=== PATIENT | male | born 1975 | race Two or more races ===

== ENCOUNTER 2022-03-11 19:09 | Emergency (ER) | payer MEDICAID, SELFPAY ==
--- NOTE | ~2022-03-11 | CT_ITS ---
EXAMINATION: CT ABDOMEN AND PELVIS WITH CONTRAST CLINICAL INFORMATION: Abdominal pain, nausea/vomiting COMPARISON: None TECHNIQUE: Multidetector volumetric images were obtained from the superior aspect of the liver through the pubic symphysis following administration 85 mL of Omnipaque 350 intravenous contrast. Sagittal and coronal reformatted images were obtained on the technologist's workstation. Oral contrast: No This CT examination was performed using dose optimization techniques as appropriate, variously including the following: *Automated exposure control *Adjustment of mA and/or kV according to patient size (this includes techniques or standardized protocols for targeted exams where dose is matched to indication/reason for exam; i.e. extremities or head) *Use of iterative reconstruction technique DLP: 667 mGy-cm FINDINGS: LUNG BASES: Mild dependent atelectasis. LIVER, GALLBLADDER, AND BILIARY TREE: The liver is normal in size, shape, and attenuation. A small focal region of hypoattenuation adjacent to the falciform ligament could be due to focal fatty infiltration or alterations in hepatic perfusion. No biliary ductal dilatation is present. The gallbladder is unremarkable with no evidence of radiopaque gallstones, gallbladder wall thickening, or obvious pericholecystic inflammatory changes. PANCREAS: Unremarkable. SPLEEN: Unremarkable. ADRENAL GLANDS: Unremarkable. KIDNEYS AND URETERS: The kidneys are normal in size, shape, and attenuation. No hydronephrosis, hydroureter, or calculi seen. No perinephric stranding. BLADDER: Unremarkable. GASTROINTESTINAL TRACT: No evidence of bowel obstruction. There is a mildly thick-walled appearance of scattered segments of the colon. The appendix is unremarkable. No free fluid or free air is seen. ABDOMINAL WALL: Fat-containing right inguinal hernia. LYMPH NODES: Normal. VASCULAR: Unremarkable. PELVIC VISCERA: Unremarkable. OSSEOUS STRUCTURES: Scattered endplate osteophytes are present in the spine. CT/CT abdomen pelvis w IV con IMPRESSION: Mildly thick-walled appearance of segments of colon, which could reflect mild colitis in the proper clinical setting. No evidence of bowel obstruction. Normal appendix.
[2022-03-11 19:20] VITALS: BP 159/96; PULSE 91; RESP 18; TEMP 36.9; O2SAT 95; BMI 32.0
--- NOTE | 2022-03-12 00:35 | ECG_ITS ---
Test Reason : ADB PAIN Blood Pressure : / mmHG Vent. Rate : 086 BPM Atrial Rate : 086 BPM P-R Int : 144 ms QRS Dur : 098 ms QT Int : 378 ms P-R-T Axes : 044 034 024 degrees QTc Int : 452 ms Normal sinus rhythm Intra-ventricular conduction delay Otherwise normal ECG No previous ECGs available Referred By: Celine Padilla Electronically Signed By:ROCKY CORDOVA MD
--- NOTE | 2022-03-12 00:35 | ED_ITS ---
HPI - Abdominal Pain General Chief Complaint: Nausea/Vomiting/Diarrhea Stated Complaint: abdominal pain, diarrhea, vomiting, food poison Time Seen by Provider: 03/12/22 00:31 Source: patient Mode of arrival: ambulatory Limitations: no limitations History of Present Illness HPI narrative: 46-year-old male presents with 5 days of diffuse abdominal pain, nausea, vomiting, and diarrhea. Patient is an insulin-dependent diabetic, does take metformin. Patient has been unable to eat or drink for the past 24 hours, and states that he was evaluated 5 days ago at [facility]. He states at that time the workup was negative, and he was discharged home with no supportive measures. Patient states that his diarrhea has continued, he does not report any blood in it, and does not report fevers or chills. He denies chest pain or pressure, palpitations, abdominal distention, inability to pass stools or flatu s, for weakness, and edema. MD elicited complaint: abdominal pain Pertinent past history: none Onset (ago): day(s) (5) Pain Consistency: constant Location: diffuse Severity: severe Pain scale (0-10): 9 Quality: cramping and aching Radiation: none Migration to: no migration Exacerbating factors: bowel movement, vomiting and movement Relieving factors: nothing Associated symptoms: nausea, vomiting and diarrhea Treatments prior to arrival: NSAIDs Related Data Previous Rx's Medication Instructions Recorded levofloxacin 750 mg tablet 750 mg PO Q24H 6 days #6 tabs 03/12/22 metronidazole 500 mg tablet 500 mg PO Q8H 7 days #21 tabs 03/12/22 ondansetron 4 mg disintegrating 4 mg PO Q8H PRN nausea and 03/12/22 tablet vomiting #14 tabs oxycodone 5 mg tablet 5 mg PO Q8H PRN pain #7 tabs 03/12/22 Allergies Allergy/AdvReac Type Severity Reaction Status Date / Time No Known Allergies Allergy Verified 03/11/22 19:20 Review of Systems Review of Systems Constitutional: No Weight loss, No Fever, No Chills, No Night Sweats, No Fatigue, No Malaise ENT/Mouth: No Hearing loss, No Ear Pain, No Nasal Congestion, No Sinus Pain, No Hoarseness, No sore throat, No Rhinorrhea, No Swallowing Difficulty Eyes: No Eye Pain, No Swelling, No Redness, No Foreign Body, No Discharge, No Vision Changes Cardiovascular: No Chest Pain, No SOB, No Dyspnea on Exertion, No Orthopnea, No Edema, No Palpitations Respiratory: No Cough, No Sputum, No Wheezing, No Dyspnea Gastrointestinal: Positive Nausea, Positive Vomiting, positive Diarrhea, positive abdominal Pain, No Hematochezia, No Melena Genitourinary: no irregular bleeding, No Dysuria, No Urinary Frequency, No Hematuria, No Urinary Incontinence, No Urgency, No Flank Pain, No Urinary Flow Changes, No Hesitancy Musculoskeletal: No joint pain, No Myalgias, No Joint Swelling Skin: No Skin Lesions, No rash Neuro: No Weakness, No Numbness, No Paresthesias, No Loss of Consciousness, No Dizziness, No Headache Psych: No Anxiety/Panic, No Depression, No SI/HI/AH/VH, No Social Issues Heme/Lymph: No Bruising, No Bleeding,No Lymphadenopathy Endocrine: No Polyuria, No Polydipsia, No Temperature Intolerance Yes all other systems are reviewed and are negative [facility] Past Medical History Attestation statement: The following information was validated with the patient. Source: old records reviewed Social History Social History Advance Directives: No Advance Directives Information Provided: No Physical Exam ED Vital Signs: Vital Signs - 24 hr 03/11/22 19:20 03/12/22 00:37 03/12/22 01:10 Temperature 98.4 F 99.2 F Pulse Rate 91 86 Respiratory Rate 18 16 16 Blood Pressure 159/96 H 174/98 H Pulse Oximetry 95 98 Oxygen Delivery Method Room Air Room Air 03/12/22 01:17 Temperature 99.1 F Pulse Rate 85 Respiratory Rate 20 Blood Pressure 179/89 H Pulse Oximetry 100 Oxygen Delivery Method Room Air BMI result Body Mass Index 32.0 Appearance: Alert. Oriented X3. Moderate distress. Eyes: Pupils equal, round and reactive to light. No scleral icterus. ENT: Pharynx normal. Dry mucous membranes. Neck: Normal inspection. Neck supple. CVS: Normal heart rate and rhythm. Pulses normal. Respiratory: No respiratory distress. Breath sounds normal. Abdomen: Soft and diffusely tender. No rigidity or rebound. Skin: Skin warm and dry. Normal skin color. Normal skin turgor. Extremities: No lower extremity edema. Gait well-balanced well coordinated. Neuro: No motor deficit. No sensory deficit. Cranial nerves 2-12 intact. Course Course Course Narrative: 46-year-old male presents for 5 days of diffuse abdominal pain with nausea, vomiting, and diarrhea. Was evaluated at [facility] where his lab values were normal, no imaging was completed at that time. Patient stated that his symptoms have not improved, and he has been unable to eat for approximately 24 hours. He is an insulin-dependent diabetic, does take metformin. He does report using alcohol prior to the onset of abdominal pain nausea and vomiting. Patient appears to be in moderate distress, has a diffusely tender abdomen without rigidity or rebound. Afebrile, alert oriented x4, no chest pain or palpitations noted. Plan of care is for CT scan abdomen and pelvis with contrast, labs, urinalysis, and COVID testing. Will order antiemetic, pain management, and fluids. 01:00 lab values are within normal limits, does have an elevated glucose of 285, sodium 131, corrected is 134. CT scan is pending. 01:20 EKG is normal sinus, low likelihood of ACS at this time. 01:50 CT scan shows colitis without perforation. White count is within normal limits, sodium 131 corrected 134. Plan of care is for patient to be discharged home, will order Levaquin, Flagyl, as patient does have diarrhea and Augmentin has higher risk of diarrhea. Will give oxycodone for pain management, Zofran for antiemetic. MDM - Abdominal Pain Differential Diagnosis Differential diagnosis: Likely abdominal pain, acute appendicitis, calculus of kidney, constipation, diverticulitis, gastroenteritis, gastritis, pancreatitis and small bowel obstruction Medical Records Attestation: I reviewed the patient's medical records. Lab Data Attestation: I reviewed the patient's lab results. Result diagrams: 03/12/22 00:49 03/12/22 00:49 Labs: Lab Results 03/12/22 03/12/22 03/12/22 Range/Units 00:48 00:48 00:49 WBC 6.2 (4.8-10.8) X10*3/uL RBC 4.25 L (4.60-5.80) X10*6/uL Hgb 13.1 L (14.0-18.0) g/dl Hct 36.7 L (42.0-52.0) % MCV 86.4 (80.0-98.0) fL MCH 30.8 (27.0-33.0) pg MCHC 35.7 (31.0-36.0) g/dl RDW 11.6 (11.0-16.0) % Plt Count 218 (160-400) X10*3/uL MPV 9.7 (9.4-12.4) fL Immature Gran % (Auto) 0.3 (0.0-0.4) % Neut % (Auto) 53.2 (45-73) % Lymph % (Auto) 17.9 L (20-40) % Becker % (Auto) 28.3 H (2-11) % Eos % (Auto) 0.0 (0-4) % Baso % (Auto) 0.3 (0-2) % Lymph # (Auto) 1.1 L (1.2-4.9) X10*3/uL Becker # (Auto) 1.8 H (0.1-1.2) X10*3/uL Eos # (Auto) 0.0 (0.0-0.4) X10*3/uL Baso # (Auto) 0.0 (0.0-0.2) X10*3/uL Abs Immat Gran (auto) 0.02 (0.00-0.03) X10*3/uL Absolute Neuts (auto) 3.3 (2.0-8.3) x10*3/uL Absolute Nucleated RBC 0.000 (0.0-0.012) X10*3/uL Nucleated RBC % (auto) 0.0 (0.0-0.2) /100WBC Smear Tech's Comments VERIFIED PT 10.7 (10.0-13.1) SEC INR 0.9 (0.9-1.1) APTT 26.9 (26.0-36.4) SEC Sodium (135-145) mmol/L Potassium (3.3-5.1) mmol/L Chloride (96-108) mmol/L Carbon Dioxide (22-29) mmol/L Anion Gap (12-20) BUN (9-16) mg/dL Creatinine (0.5-1.4) mg/dL Estim Creat Clear Calc Estimated GFR Random Glucose (60-115) mg/dL Lactic Acid 0.9 (0.5-2.0) mmol/L Calcium (8.4-10.2) mg/dL Total Bilirubin (0.0-1.0) mg/dL Direct Bilirubin (0.0-0.5) mg/dL AST (5-37) U/L ALT (0-40) U/L Alkaline Phosphatase (39-117) U/L Total Protein (6.5-8.0) g/dL Albumin (3.5-5.0) g/dL Lipase (8-78) U/L 03/12/22 Range/Units 00:49 WBC (4.8-10.8) X10*3/uL RBC (4.60-5.80) X10*6/uL Hgb (14.0-18.0) g/dl Hct (42.0-52.0) % MCV (80.0-98.0) fL MCH (27.0-33.0) pg MCHC (31.0-36.0) g/dl RDW (11.0-16.0) % Plt Count (160-400) X10*3/uL MPV (9.4-12.4) fL Immature Gran % (Auto) (0.0-0.4) % Neut % (Auto) (45-73) % Lymph % (Auto) (20-40) % Becker % (Auto) (2-11) % Eos % (Auto) (0-4) % Baso % (Auto) (0-2) % Lymph # (Auto) (1.2-4.9) X10*3/uL Becker # (Auto) (0.1-1.2) X10*3/uL Eos # (Auto) (0.0-0.4) X10*3/uL Baso # (Auto) (0.0-0.2) X10*3/uL Abs Immat Gran (auto) (0.00-0.03) X10*3/uL Absolute Neuts (auto) (2.0-8.3) x10*3/uL Absolute Nucleated RBC (0.0-0.012) X10*3/uL Nucleated RBC % (auto) (0.0-0.2) /100WBC Smear Tech's Comments PT (10.0-13.1) SEC INR (0.9-1.1) APTT (26.0-36.4) SEC Sodium 131 L (135-145) mmol/L Potassium 3.7 (3.3-5.1) mmol/L Chloride 94 L (96-108) mmol/L Carbon Dioxide 21 L (22-29) mmol/L Anion Gap 20 (12-20) BUN 15 (9-16) mg/dL Creatinine 0.96 (0.5-1.4) mg/dL Estim Creat Clear Calc 99.8 Estimated GFR > 60 Random Glucose 285 H (60-115) mg/dL Lactic Acid (0.5-2.0) mmol/L Calcium 8.3 L (8.4-10.2) mg/dL Total Bilirubin 0.5 (0.0-1.0) mg/dL Direct Bilirubin 0.2 (0.0-0.5) mg/dL AST 17 (5-37) U/L ALT 11 (0-40) U/L Alkaline Phosphatase 53 (39-117) U/L Total Protein 6.1 L (6.5-8.0) g/dL Albumin 3.5 (3.5-5.0) g/dL Lipase 40 (8-78) U/L Imaging Data CT scan - abdomen: Attestation: I personally reviewed and interpreted this imaging study as follows: Radiologist's impression: EXAMINATION: CT ABDOMEN AND PELVIS WITH CONTRAST? CLINICAL INFORMATION: Abdominal pain, nausea/vomiting? COMPARISON: None? TECHNIQUE: Multidetector volumetric images were obtained from the superior aspect of the liver through the pubic symphysis following administration 85 mL of Omnipaque 350 intravenous contrast. Sagittal and coronal reformatted images were obtained on the technologist's workstation.? Oral contrast: No This CT examination was performed using dose optimization techniques as appropriate, variously including the following: *Automated exposure control *Adjustment of mA and/or kV according to patient size (this includes techniques or standardized protocols for targeted exams where dose is matched to indication/reason for exam; i.e. extremities or head) *Use of iterative reconstruction technique DLP: 667 mGy-cm FINDINGS: LUNG BASES: Mild dependent atelectasis.? LIVER, GALLBLADDER, AND BILIARY TREE: The liver is normal in size, shape, and attenuation. A small focal region of hypoattenuation adjacent to the falciform ligament could be due to focal fatty infiltration or alterations in hepatic perfusion. No biliary ductal dilatation is present. The gallbladder is unremarkable with no evidence of radiopaque gallstones, gallbladder wall thickening, or obvious pericholecystic inflammatory changes.? PANCREAS: Unremarkable.? SPLEEN: Unremarkable.? ADRENAL GLANDS: Unremarkable.? KIDNEYS AND URETERS: The kidneys are normal in size, shape, and attenuation. No hydronephrosis, hydroureter, or calculi seen. No perinephric stranding. ? BLADDER: Unremarkable.? GASTROINTESTINAL TRACT: No evidence of bowel obstruction. There is a mildly thick-walled appearance of scattered segments of the colon. The appendix is unremarkable. No free fluid or free air is seen. ABDOMINAL WALL: Fat-containing right inguinal hernia.? LYMPH NODES: Normal. VASCULAR: Unremarkable. PELVIC VISCERA: Unremarkable.? OSSEOUS STRUCTURES: Scattered endplate osteophytes are present in the spine.? CT/CT abdomen pelvis w IV con IMPRESSION: Mildly thick-walled appearance of segments of colon, which could reflect mild colitis in the proper clinical setting. No evidence of bowel obstruction. Normal appendix.? ? ECG Data Attestation: I personally reviewed and interpreted this ECG as follows: ECG interpretation date: 03/12/22 ECG interpretation time: 01:13 Prior ECG tracings: not available for review Interpretation: Vent. rate 86 BPM MA interval 144 ms QRS duration 98 ms QT/QTc 378/452 ms P-R-T axes 44 34 24 Normal sinus rhythm Normal ECG No previous ECGs available Discharge Plan Discharge Clinical Impression: Colitis Patient Disposition: Home, Self-Care Instructions: Acute Nausea and Vomiting (ED), Colitis (ED) Additional Instructions: You were evaluated for abdominal pain, nausea, vomiting and diarrhea. CT scan of abdomen pelvis indicates mild colitis. Please take Levaquin 750 mg daily for the next 7 days. Take Flagyl 500 mg 3 times daily for the next 7 days. Do not drink alcohol with this medication. If you drink alcohol while taking this medication you will have severe side effects. I prescribed oxycodone for pain management. This medication is a narcotic and has high risk for addiction and abuse. Do not drive or operate machinery while taking this medication. This medication can cause drowsiness, increased risk for falls, delayed reaction time, and cause constipation. Drink plenty of flui ds, consider taking MiraLax and or Colace to help soften stools while on this medication. I prescribed Zofran for nausea. This medication is also under the tongue. Follow directions for this medication, take this medication every 8 hours as needed. Do not take more than prescribed. If symptoms worsen, return to the emergency department immediately. Thank you for choosing this emergency department for evaluation. Please follow-up with primary care physician as needed. Return to the emergency department for any new, concerning, or worsening symptoms. Prescriptions: New levofloxacin 750 mg tablet 750 mg PO Q24H 6 Days Qty: 6 0RF Rx Instructions: Start this medication on 03/13/2022, 1st dose given in the emergency department at 02:00 03/12/2022 metronidazole 500 mg tablet 500 mg PO Q8H 7 Days Qty: 21 0RF ondansetron 4 mg tablet,disintegrating 4 mg PO Q8H PRN (Reason: nausea and vomiting) Qty: 14 0RF oxycodone 5 mg tablet 5 mg PO Q8H PRN (Reason: pain) Qty: 7 0RF Rx Instructions: Partial Fill upon patient request. Colitis Referrals: Physician,Unknown J [Primary Care Provider] - 2 weeks (Follow-up with primary ca re physician)
[2022-03-12 00:37] VITALS: BP 174/98; PULSE 86; RESP 16; TEMP 37.3; O2SAT 98
[2022-03-12 00:56] LABS: Basophils Percent Auto 0.3 % (0-2); Hematocrit 36.7 % (42.0-52.0); Hemoglobin 13.1 g/dl (14.0-18.0); Imm Gran Abs Auto 0.02 X10*3/uL (0.00-0.03); Imm Gran Pct Auto 0.3 % (0.0-0.4); Lymphocytes Absolute Auto 1.1 X10*3/uL (1.2-4.9); Lymphocytes Percent Auto 17.9 % (20-40); Mean Corpuscular HGB Conc 35.7 g/dl (31.0-36.0); Mean Corpuscular Hemoglobin 30.8 pg (27.0-33.0); Mean Corpuscular Volume 86.4 fL (80.0-98.0); Mean Platelet Volume 9.7 fL (9.4-12.4); Monocytes Absolute Auto 1.8 X10*3/uL (0.1-1.2); Monocytes Percent Auto 28.3 % (2-11); Neutrophils Absolute Auto 3.3 x10*3/uL (2.0-8.3); Neutrophils Percent Auto 53.2 % (45-73); Platelet Count 218 X10*3/uL (160-400); Red Blood Count 4.25 X10*6/uL (4.60-5.80); Red Cell Distribution Width 11.6 % (11.0-16.0); SCAN SMEAR FLAG 1; White Blood Count 6.2 X10*3/uL (4.8-10.8)
[2022-03-12 00:58] LABS: MANUAL DIFF FLAG SCAN
[2022-03-12 01:02] LABS: INTERNATIONAL NORM RATIO 0.9 (0.9-1.1); Prothrombin Time 10.7 SEC (10.0-13.1)
[2022-03-12] MEDS: iohexoL 350 MG/ML 100 ML INFUS..BTL IV (01:04)
[2022-03-12 01:05] LABS: Partial Thromboplastin Time 26.9 SEC (26.0-36.4)
[2022-03-12] MEDS: 0.9 % Sodium Chloride 1,000 ML 999 ML IVCONT (01:05)
[2022-03-12 01:10] VITALS: RESP 16
[2022-03-12] MEDS: Morphine Sulfate 4 MG/ML CARTRIDGE IVPUSH (01:10)
[2022-03-12 01:13] LABS: Lactic Acid 0.9 mmol/L (0.5-2.0)
[2022-03-12 01:17] VITALS: BP 179/89; PULSE 85; RESP 20; TEMP 37.3; O2SAT 100
[2022-03-12 01:17] LABS: Alanine Aminotransferase 11 U/L (0-40); Albumin Level 3.5 g/dL (3.5-5.0); Alkaline Phosphatase 53 U/L (39-117); Anion Gap 20 (12-20); Aspartate Amino Transferase 17 U/L (5-37); Bilirubin Direct 0.2 mg/dL (0.0-0.5); Bilirubin Total 0.5 mg/dL (0.0-1.0); Blood Urea Nitrogen 15 mg/dL (9-16); Calcium 8.3 mg/dL (8.4-10.2); Carbon Dioxide 21 mmol/L (22-29); Chloride 94 mmol/L (96-108); Creatinine Clr Calc Pharmacy 99.8; Estimated Glomerular Filt Rate > 60; Glucose Random 285 mg/dL (60-115); Lipase 40 U/L (8-78); Potassium 3.7 mmol/L (3.3-5.1); Sodium 131 mmol/L (135-145); Total Protein 6.1 g/dL (6.5-8.0)
[2022-03-12 01:23] LABS: SLIDE REVIEW VERIFIED
[2022-03-12 02:09] LABS: Influenza A PCR NEGATIVE (Negative); Influenza B PCR NEGATIVE (Negative); Resp Syncy Virus RNA Qual PCR NEGATIVE (Negative); SARS COV2 PCR INHOUSE NEGATIVE (Negative)
[2022-03-12] MEDS: levoFLOXacin 750 MG TABLET PO (02:39)
[2022-03-12] MEDS: metroNIDAZOLE 500 MG TABLET PO (02:39)
[2022-03-12] MEDS: oxyCODONE HCl Immed Release 5 MG TABLET PO (02:39)
== END 2022-03-12 03:06 | disposition home or self-care (01) ==
PROVIDERS: Nurse Practitioner Family; Emergency Provider Emergency Medicine
DX: K52.9 Noninfective gastroenteritis and colitis, unspecified (principal); Z20.822 Contact with and (suspected) exposure to COVID-19; Z79.899 Other long term (current) drug therapy
CPT/HCPCS: 0241U; 36415; 74177; 80048; 80076; 83605; 83690; 85025; 85610; 85730; 87040; 93005; 96374; 96375; 99284; J2270; Q9967

== ENCOUNTER 2023-06-12 10:52 | Outpatient (REF) | payer MEDICAID, OTHER, SELFPAY ==
[2023-06-12 14:00] LABS: MANUAL DIFF FLAG NO
[2023-06-12 14:07] LABS: Basophils Percent Auto 0.4 % (0-2); Eosinophils Absolute Auto 0.2 X10*3/uL (0.0-0.4); Eosinophils Percent Auto 4.5 % (0-4); Hematocrit 37.8 % (42.0-52.0); Hemoglobin 13.2 g/dl (14.0-18.0); Imm Gran Abs Auto 0.01 X10*3/uL (0.00-0.03); Imm Gran Pct Auto 0.2 % (0.0-0.4); Lymphocytes Absolute Auto 1.1 X10*3/uL (1.2-4.9); Lymphocytes Percent Auto 25.5 % (20-40); Mean Corpuscular HGB Conc 34.9 g/dl (31.0-36.0); Mean Corpuscular Hemoglobin 31.4 pg (27.0-33.0); Mean Corpuscular Volume 89.8 fL (80.0-98.0); Mean Platelet Volume 10.7 fL (9.4-12.4); Monocytes Absolute Auto 0.5 X10*3/uL (0.1-1.2); Monocytes Percent Auto 11.2 % (2-11); Neutrophils Absolute Auto 2.6 x10*3/uL (2.0-8.3); Neutrophils Percent Auto 58.2 % (45-73); Platelet Count 274 X10*3/uL (160-400); Red Blood Count 4.21 X10*6/uL (4.60-5.80); Red Cell Distribution Width 12.2 % (11.0-16.0); White Blood Count 4.5 X10*3/uL (4.8-10.8)
[2023-06-12 15:14] LABS: TSH reflex Free T4 1.33 uIU/mL (0.32-4.0)
[2023-06-12 15:24] LABS: Vitamin B12 378 pg/mL (200-900)
[2023-06-12 15:27] LABS: Alanine Aminotransferase 13 U/L (0-40); Albumin Level 4.3 g/dL (3.5-5.0); Alkaline Phosphatase 120 U/L (39-117); Anion Gap 13 (12-20); Aspartate Amino Transferase 14 U/L (5-37); Bilirubin Direct 0.1 mg/dL (0.0-0.5); Bilirubin Total 0.5 mg/dL (0.0-1.0); Blood Urea Nitrogen 21 mg/dL (9-16); Calcium 9.8 mg/dL (8.4-10.2); Carbon Dioxide 26 mmol/L (22-29); Chloride 100 mmol/L (96-108); Estimated Glomerular Filt Rate > 60; Lipase 47 U/L (8-78); Potassium 4.6 mmol/L (3.3-5.1); Sodium 134 mmol/L (135-145); Total Protein 7.8 g/dL (6.5-8.0)
[2023-06-12 20:07] LABS: Glucose Fasting 401 mg/dL (60-99)
== END 2023-06-12 10:53 | disposition home or self-care (01) ==
LOC: HO.CHCLDS 10:52
PROVIDERS: Visit Provider Pediatrics
DX: E11.3393 Type 2 diabetes mellitus with moderate nonproliferative diabetic retinopathy without macular edema, bilateral (principal); Z79.4 Long term (current) use of insulin; F10.10 Alcohol abuse, uncomplicated; I10 Essential (primary) hypertension; R10.11 Right upper quadrant pain
CPT/HCPCS: 36415; 80048; 80076; 82607; 82746; 83690; 84443; 85025

== ENCOUNTER 2024-08-07 10:53 | Outpatient (REF) | payer MEDICAID, OTHER, SELFPAY ==
--- OUTSIDE RECORDS SUMMARY | 2024-08-07 13:11 | XMS_ITS | Clinical Summary ---
Author Organization [facility] Address [address] [place] [address] Care Team Providers Care Motor Pool Clerk Name Role Phone Karon Link Primary Care Provider [phone] Allergies No known active allergies Medications aspirin 81 mg EC tablet Take 81 mg by mouth every morning. 0 Active Freestyle Lite test strips TEST BLOOD SUGAR TWICE DAILY 9 Active clobetasol (TEMOVATE) 0.05% cream Apply topically to the affected area 2 times a day as needed. 0 Active FLUoxetine (PROzac) 40 mg capsule Take 40 mg by mouth every evening. 9 Active glipiZIDE XL (GLUCOTROL XL) tablet 10 mg Take 10 mg by mouth every morning. 0 Active TRUEPLUS LANCETS lancet 33 gauge USE TWO DAILY 9 Active lisinopril (PRINIVIL,ZESTRIL ) 30 mg tablet Take 30 mg by mouth every morning. 0 Active metFORMIN (GLUCOPHAGE) 1,000 mg tablet Take 1,000 mg by mouth 2 times a day. 0 Active simvastatin (ZOCOR) 40 mg tablet Take 40 mg by mouth nightly. 9 Active insulin aspart (NovoLOG FLEXPEN) 100 unit/mL insulin pen Inject 12-18 Units under the skin 3 times a day with meals. Sliding scale with each meal Active LANTUS SOLOSTAR U-100 INSULIN 100 unit/mL (3 mL) insulin pen Inject 32 Units under the skin nightly. 0 Active PENTIPS 4 mm x 32 g USE FOUR TIMES DAILY 0 Active blood pressure test kit-large kit Check blood pressure on arm as directed 0 Active ketorolac (ACULAR) 0.5% ophthalmic solutionIndicatio ns:Pseudophakia of right eye Instill 1 drop into the right eye 4 times a day. 5 mL 0 Active Additional Information Patient not taking.Reported on 08/10/2022 dorzolamide-timol oL (COSOPT) 22.3-6.8 mg/mL ophthalmic solution Instill 1 drop into the right eye 2 times a day. 10 mL 5 05/25/2020 9:29 AM EST 0 Active Additional Information Patient not taking.Reported on 08/10/2022 acetaZOLAMIDE (DIAMOX) 250 mg tablet Take 1 tablet (250 mg total) by mouth 2 times a day. 30 tablet 05/25/2020 9:29 AM EST 0 Active Additional Information Patient not taking.Reported on 08/10/2022 travoprost (TRAVATAN) 0.004% dropsIndications: Ocular hypertension of right eye Instill 1 drop into the right eye nightly. 5 mL 5 05/26/2020 10:54 AM EST 0 Active Additional Information Patient not taking.Reported on 08/10/2022 atropine 1% ophthalmic solutionIndicatio ns:Glaucoma secondary to other eye disorders, right eye, indeterminate stage Instill 1 drop into the right eye 2 times a day. 5 mL 2 08/09/2020 10:10 AM EST 1 Active Additional Information Patient not taking.Reported on 08/10/2022 brimonidine (Alphagan P) 0.1 % dropsIndications: Glaucoma secondary to other eye disorders, right eye, indeterminate stage Instill 1 drop into both eyes 3 times a day. 10 mL 11 08/09/2020 10:10 AM EST 1 Active Additional Information Patient not taking.Reported on 08/10/2022 dorzolamide-timol oL (COSOPT) 22.3-6.8 mg/mL ophthalmic solutionIndicatio ns:Glaucoma secondary to other eye disorders, right eye, indeterminate stage Instill 1 drop into both eyes 2 times a day. 10 mL 11 08/09/2020 10:10 AM EST 1 Active Additional Information Patient not taking.Reported on 08/10/2022 netarsudiL (Rhopressa) 0.02 % drops ophthalmic solutionIndicatio ns:Glaucoma secondary to other eye disorders, right eye, indeterminate stage Instill 1 drop into the right eye every evening. 2.5 mL 11 1 Active Additional Information Patient not taking.Reported on 08/10/2022 prednisoLONE acetate (PRED FORTE) 1% ophthalmic suspensionIndicat ions:Glaucoma secondary to other eye disorders, right eye, indeterminate stage Instill 1 drop into the right eye 2 times a day. 10 mL 2 08/09/2020 10:10 AM EST 1 Active Additional Information Patient not taking.Reported on 08/10/2022 travoprost (TRAVATAN) 0.004% dropsIndications: Glaucoma secondary to other eye disorders, right eye, indeterminate stage Instill 1 drop into both eyes every night. 5 mL 11 08/09/2020 10:10 AM EST 1 Active Additional Information Patient not taking.Reported on 08/10/2022 Simbrinza 1-0.2 % drops,suspension 1 drop 2 times a day. 3 Active omeprazole (PriLOSEC) 40 mg capsule Take 1 capsule (40 mg total) by mouth once a day. 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 06/08/2020 Neovascular glaucoma of right eye, severe stage 06/08/2020 Pseudophakia of right eye 06/08/2020 Pterygium, right 06/08/2020 Family History Medical History Relation Name Comments Diabetes Father Diabetes Mother Relation Name Status Comments Father Mother Social History Tobacco Use Types Packs/Day Years Used Date Smoking Tobacco: Former Cigarettes 0 08/12/1992 - 08/12/1994 Passive Smoke Exposure: Never Smokeless Tobacco: Never Comments:pt mstates not smok ing anymore Alcohol Use Standard Drinks/Week Comments Yes 10 (1 standard drink = 0.6 oz pure alcohol) reports only 1 beer/daily, prior hx heavy ETOH. 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 on file Not on file Not on file Last Filed Vital Signs Vital Sign Reading Time Taken Comments Blood Pressure 120/81 08/10/2022 2:03 PM EST Pulse 73 08/10/2022 2:03 PM EST Temperature 36.7 ??C (98 ??F) 08/10/2022 2:03 PM EST Respiratory Rate 16 08/10/2022 2:03 PM EST Oxygen Saturation 97% 03/10/2020 9:10 AM EDT Inhaled Oxygen Concentration - - Weight 88 kg (194 lb) 08/10/2022 2:03 PM EST Height 155 cm (5' 1.02 ) 03/19/2020 10:02 AM EDT Body Mass Index 36.63 03/19/2020 10:02 AM EDT Plan of Treatment Health Maintenance Due Date Last Done Comments Basic Metabolic Panel 1976 Cologuard 1976 Colon Cancer Screening 1976 Colonoscopy 1976 FOBT / Fit Test 1976 HIV Screening 1976 Hemoglobin A1C 1976 Hepatitis C Screening 1976 Sigmoidoscopy 1976 Urine Microalbumin 1986 Hepatitis B Vaccines (1 of 3 - 19+ 3-dose series) 1995 Pneumococcal Vaccine: Pediat marko (0-5 Years) and At-Risk Patients (6-50 Years) (1 of 2 - PCV) 1995 Ophthalmology Exam 09/09/2021 09/09/2020, 0 09/09/2020, 09/09/2020, Additional history exists COVID-19 Vaccine (3 - 2023-2 5 season) 2024 09/14/2020, 08/17/2020 Influenza Vaccine (#1) 2024 2, 03/04/2020, 03/12/2019, Additional history exists Alcohol/Substance Use Screening 06/04/2024 Depression Screening and Follow-Up 06/04/2024 Social Drivers of Health Kerry ual Screening 06/04/2024 DTaP,Tdap,and Td Vaccines (2 - Td or Tdap) 03/12/2029 03/12/2019, 07/26/2014 RSV Vaccine (60+ years old a nd patients) (1 - 1-dose 75+ series) 2051 Medical Devices Implanted Type Area Weight Control Lecturer Device Identifier Shelf Expiration Date Model / Serial / Lot Lens Intraocular Ashperic Natural Single Piece Acrylic With Blue Light Filter [id number] 21.5d - [id number] - [id number] Implanted:Qty: 1 on 03/10/2020 by Ector Mcleod MD at [facility] Lens MAME 07/13/2024 [id number] 21.5 / [id number] / Insurance [facility] HSNO/FREE CARE Advance Directives * Full Code (Latest Code Status on File) Date Activated Date Inactivated Comments 03/10/2020 7:42 AM 03/10/2020 3:12 PM Care Teams Motor Pool Clerk Relationship Specialty Start Date End Date Karon Link [address] [place] [id number] PCP - General 12/21/16
--- OUTSIDE RECORDS SUMMARY | 2024-08-07 13:11 | XMS_ITS | Encounter Summary ---
Author Organization [employer] [facility] Address [address] [place] [address] Care Team Providers Care Pathologist Assistant Name Role Phone Karon Link MD Primary Care Provider [phone] Encounter Details Date Type Department Care Team (Late Contact Info) Description 12/18/2022 Orders Only [facility] MEDICINE [address] [place] [address] Larisa Morgan LPN Social History Tobacco Use Types Packs/Day Years Used Date Smoking Tobacco: Never Passive Smoke Exposure: Never Smokeless Tobacco: Never Alcohol Use Standard Drinks/Week Comments Never 0 (1 standard drink = 0.6 oz pur e alcohol) Depression Answer Date Recorded Patient Health Questionnaire-9 Score 6 07/05/2022 Depression Answer Date Recorded Patient Health Questionnaire-2 Score 2 07/05/2022 Sex and Gender Information Value Date Recorded Sex Assigned at Male 04/03/2022 10:20 AM EDT Legal Sex Male 10:20 AM EDT Gender Identity Choose not to disclose 10:20 AM EDT Sexual Orientation Choose not to disclose 2021 10:20 AM EDT documented as of this encounter Plan of Treatment Upcoming Encounters Date Type Department Care Team (Late st Contact Info) Description 10/08/2024 9:15 AM EDT Office Visit [facility] MED & PEDS [address] [place], [place] [phone] Karon Link MD [address] [place], [place] [phone] documented as of this encounter Visit Diagnoses Not on filedocumented in this encounter Additional Health Concerns Assessment Noted Time PHQ-9 Depression Total Score: 6 07/05/19 23 10:38 AM EST documented as of this encounter Care Teams Pathologist Assistant Relationship Specialty Start Date End Date Karon Link MD [address] [place] [id number] PCP - General Family Medicine 06/04/18 documented as of this encounter
--- OUTSIDE RECORDS SUMMARY | 2024-08-07 13:11 | XMS_ITS | Encounter Summary ---
Author Organization [employer] Address [address] [facility] [address] [place] [address] Care Team Providers Care Poultry Buyer Name Role Phone Karon Link MD Primary Care Provider [phone] Encounter Details Date Type Department Care Team (Latest Contact Info) Description 08/07/2024 Travel Social History Tobacco Use Types Packs/Day Years Used Date Smoking Tobacco: Never Passive Smoke Exposure: Never Smokeless Tobacco: Never Alcohol Use Standard Drinks/Week Comments Never 0 (1 standard drink = 0.6 oz pur e alcohol) Depression Answer Date Recorded Patient Health Questionnaire-9 Score 1 05/08/2024 Patient Health Questionnaire-9 Score 1 05/08/2024 Last PHQ-9: Questionnaire Data Not on file 1 07/09/2023 Housing Stability Answer Date Recorded What is your housing situation today? I have cara ley 05/08/[address] you li ve. Do you have problems with any of the following? None of the above 05/08/2024 Food Insecurity Answer Date Recorded Within the past 12 months, y ou worried that your food would run out before you got money to buy more: Never True 05/08/2024 Within the past 12 months,th e food you bought just didn't last and you didn't have enough money to get more: Never True 10/2023 Transportation Answer Date Recorded In the past 12 months, has l ack of transportation kept you from medical appts, meetings, work or from getting things needed for daily living? No 05/08/2024 Utilities Answer Date Recorded In the past 12 months, has t he electric, gas, oil or water company threatened to shut off services in your home? No 05/08/2024 Depression Answer Date Recorded Patient Health Questionnaire-2 Score 0 05/08/2024 Internet Access Answer Date Recorded Internet Access Q1 Yes 05/08/2024 Internet Access Q2 Not on file 05/08/2024 Sex and Gender Information Value Date Recorded Sex Assigned at Male 04/03/2022 10:20 AM EDT Legal Sex Male 10:20 AM EDT Gender Identity Choose not to disclose 10:20 AM EDT Sexual Orientation Choose not to disclose 2021 10:20 AM EDT documented as of this encounter Plan of Treatment Upcoming Encounters Date Type Department Care Team ([facility] st Contact Info) Description 10/08/2024 9:15 AM EDT Office Visit [facility] MED & PEDS [address] [place] [address] Karon Link MD [address] [place] [address] documented as of this encounter Visit Diagnoses Not on filedocumented in this encounter Additional Health Concerns Assessment Noted Time PHQ-9 Depression Total Score: 1 05/08/20 24 9:22 AM EST documented as of this encounter Care Teams Poultry Buyer Relationship Specialty Start Date End Date Karon Link MD [address] [place] [address] PCP - General Family Medicine 06/04/18 documented as of this encounter
--- OUTSIDE RECORDS SUMMARY | 2024-08-07 13:11 | XMS_ITS | Referral Summary ---
Author Organization [facility] Address [address] [place] [address] Care Team Providers Care Spa Supervisor Name Role Phone Karon Link Primary Care Provider [phone] Allergies No known active allergies Medications aspirin [...] of right eye 06/08/2020 Pterygium, right 06/08/2020 Social History Tobacco Use Types Packs/Day Years [...] 03/19/2020 10:02 AM EDT Plan of Treatment Not on file Medical Devices Implanted Type Area Catalogue Clerk Device Identifier Shelf Expiration Date Model / Serial / Lot Lens Intraocular [employer] Natural Single Piece Acrylic With Blue Light Filter [id number] 21.5d - [id number] - [id number] Implanted:Qty: 1 on 03/10/2020 by Ector Mcleod MD at [facility] Lens MAME 07/13/2024 [id number] 21.5 / [id number] / Insurance [facility] HS/FREE CARE Advance Directives * Full Code (Latest Code Status on File) Date Activated Date Inactivated Comments 03/10/2020 7:42 AM 03/10/2020 3:12 PM Care Teams Spa Supervisor Relationship Specialty Start Date End Date Karon Link [address] [place] [address] PCP - General 12/21/16
--- OUTSIDE RECORDS SUMMARY | 2024-08-07 13:11 | XMS_ITS | Encounter Summary ---
Author Organization [employer] Address [address] 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
--- OUTSIDE RECORDS SUMMARY | 2024-08-07 13:11 | XMS_ITS | Encounter Summary ---
Author Organization [employer] [facility] Address [address] [place] [address] Care Team Providers Care Continuum Of Care Manager Name Role Phone Karon Link MD Primary Care Provider [phone] Encounter Details Date Type Department Care Team (Late Contact Info) Description 02/14/2023 Orders Only [facility] MED & PEDS [address] [place], [place] [phone] Shaila Harris LPN Social History Tobacco Use Types Packs/Day [...] Description 10/08/2024 9:15 AM EDT Office Visit [facility] MED & PEDS [address] [place], [place] [phone] Karon Link MD [address] [place] [address] documented as of this encounter Visit Diagnoses Not on filedocumented in this encounter Additional Health Concerns Assessment Noted Time PHQ-9 Depression Total Score: 6 07/05/19 23 10:38 AM EST documented as of this encounter Care Teams Continuum Of Care Manager Relationship Specialty Start Date End Date Karon Link MD [address] [place] [id number] PCP - General Family Medicine 06/04/18 documented as of this encounter
--- OUTSIDE RECORDS SUMMARY | 2024-08-07 13:11 | XMS_ITS | Encounter Summary ---
Author Organization [employer] Address [address] [facility] [address] [place] [address] Care Team Providers Care Meter Changes Records Clerk Name Role Phone Karon Link MD Primary Care Provider [phone] Reason for Visit * Reason Comments Med Refill Encounter Details Date Type Department Care Team ([facility] st Contact Info) Description 06/16/2024 Refill [facility] CHC MED & PEDS [address] [place] [address] Karon Link MD [address] [place] [address] Type 2 diabetes mellitus with both eyes affected by moderate nonproliferative retinopathy without macular edema, with long-term current use of insulin ([facility]) Social History Tobacco Use Types Packs/Day Years [...] Description 10/08/2024 9:15 AM EDT Office Visit [facility] CH[facility] MED & PEDS [address] [place] [address] Karon Link MD [address] [place] [address] documented as of this encounter Visit Diagnoses Diagnosis Type 2 diabetes mellitus with both eyes affected by moderate nonproliferative retinopathy without macular edema, with long-term current use of insulin ([facility]) documented in this encounter Additional Health Concerns Assessment Noted Time PHQ-9 Depression Total Score: 1 05/08/20 24 9:22 AM EST documented as of this encounter Care Teams Meter Changes Records Clerk Relationship Specialty Start Date End Date Karon Link MD [address] [place] [address] PCP - General Family Medicine 06/04/18 documented as of this encounter
--- OUTSIDE RECORDS SUMMARY | 2024-08-07 13:12 | XMS_ITS | Clinical Summary ---
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 8 mL 11 023 Active clobetasol (Temovate) 0.05 % cream Apply topically 2 times daily. 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 4 each 023 Active Lantus SoloStar 100 UNIT/ML penIndications:Typ e 2 diabetes mellitus with left eye affected by mild nonproliferative retinopathy without macular edema, with long-term current use of insulin (CMS/HCC) INJECT 45 UNITS SUBCUTANEOUSLY EVERY DAY 15 mL 11 Active Easy Touch Lancets 33G/Twist misc TEST BLOOD SUGAR TWICE DAILY 100 each Active Aspirin Adult Low Strength 81 MG EC tablet TAKE ONE TABLET EVERY MORNING 90 tablet 3 Active chlorthalidone (Hygroton) 25 MG tablet TAKE 1 TABLET EVERY MORNING 30 tablet 5 Active insulin pen needle (TechLite Plus Pen [place]) 32G x 4 mm miscIndications:Ty pe 2 diabetes mellitus without complication, with long-term current use of insulin ([facility]) USE FOUR TIMES DAILY 100 each 11 Active lisinopril 40 MG tablet TAKE ONE TABLET BY MOUTH EVERY MORNING 90 tablet 3 Active Alcohol Swabs (Alcohol Prep) 70 % pads USE TWO DAILY 100 each Active Continuous Glucose Icing Coater (FreeStyle Frederic 2 Jackson) deviceIndications: Type 2 diabetes mellitus with both eyes affected by moderate nonproliferative retinopathy without macular edema, with long-term current use of insulin ([facility]) Scan sensor every 8 hours 1 each Active Continuous Glucose Sensor (FreeStyle Frederic 2 Sensor) miscIndications:Ty pe 2 diabetes mellitus with both eyes affected by moderate nonproliferative retinopathy without macular edema, with long-term current use of insulin ([facility]) Apply 1 sensor every 14 days 2 each Active glucose blood (FreeStyle Precision Juan Daniel Test) test stripIndications:T ype 2 diabetes mellitus with both eyes affected by moderate nonproliferative retinopathy without macular edema, with long-term current use of insulin ([facility]) Use to test blood sugar 5 times daily 100 each 12 024 05/08 Active naltrexone (Depade) 50 MG tablet Take 1 tablet (50 mg) by mouth Once per day. 30 tablet 024 05/08 Active gabapentin (Neurontin) 300 MG capsule TAKE ONE CAPSULE EVERY NIGHT AT BEDTIME 30 capsule 3 Active insulin aspart FlexPen (NovoLOG) 100 UNIT/ML penIndications:Typ e 2 diabetes mellitus without complication, with long-term current use of insulin ([facility]) INJECT 8-16 UNITS SUBCUTANEOUSLY BEFORE BREAKFAST, 12-18 UNITS BEFORE LUNCH AND 16-20 UNITS BEFORE SUPPER 15 mL 1 024 Active metFORMIN (Glucophage) 1000 MG tablet TAKE ONE TABLET IN THE MORNING AND EVENING 60 tablet 11 025 Active atorvastatin (Lipitor) 10 MG tabletIndications: Type 2 diabetes mellitus without complication, with long-term current use of insulin (CMS/HCC) TAKE ONE TABLET EVERY MORNING 90 tablet 1 025 Active FLUoxetine (PROzac) 40 MG capsule TAKE ONE CAPSULE EVERY MORNING 30 capsule 3 025 Active atorvastatin (Lipitor) 10 MG tabletIndications: Type 2 diabetes mellitus without complication, with long-term current use of insulin (CMS/HCC) TAKE ONE TABLET EVERY MORNING 90 tablet 1 024 07/09 Discontinued FLUoxetine (PROzac) 40 MG capsule TAKE ONE CAPSULE EVERY MORNING 30 capsule 3 024 07/09 Discontinued Active Problems Problem Noted Date Diagnosed Date 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 Overview (11/06/2022): Referred by Compa Dick MD from [facility] Eye Curtice Tmax (08/02/20): >80, 14 CCT: need baseline Gonio (08/02/20): NS right eye; PTM, no NVA left eye OCT: need baseline HVF: need baseline Current regimen: Brimonidine 3/3, Cosopt 2/2, Travatan 06/04 Allergies to regimen: Acetazolamide Past procedures: none Last Assessment & Plan: IOP today >70, 14mmHg Patient reports currently with no pain but he had pain couple of weeks ago Discussed options including automotive product specialist Discussed patient given NLP doesn't recommend incisional surgery but off erred automotive product specialist if Patient uncomfortable and pain Patient given not having pain wants to do drops at this time and to call us if he has significant pain to schedule automotive product specialist Continue regimen: Brimonidine TID both eyes Cosopt BID both eyes Travatan at bedtime both eyes Start regimen: PF BID right eye Atropine BID right eye Rhopressa every evening right eye Monocular precautions. 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 Dick for MRx when DME is controlled Moderate recurrent major depression 01/24/2018 Alcohol abuse 04/07/2015 Benign essential hypertension 04/07/2015 Type 2 diabetes mellitus, uncontrolled 5 Hyperlipidemia 02/22/2012 Diabetes mellitus 10/18/2011 Encounters Date Type Department Care Team Description 08/07/2024 10:15 AM EST Office Visit [facility] [address] [place] [address] Karon Link MD ETOH abuse (Primary Dx); Type 2 diabetes mellitus with both eyes affected by moderate nonproliferative retinopathy without macular edema, with long-term current use of insulin ([facility]) 08/07/2024 Refill [facility] P[facility]S [address] [place] [address] Karon Link MD 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, with long-term current use of insulin (CMS/[facility]) 08/07/2024 Travel 07/05/2024 Refill [facility] [address] [place] [address] Karon Link MD Type 2 diabetes mellitus without complication, with long-term current use of insulin (CMS/[facility]) 06/16/2024 Refill [facility] [address] [place] [address] Karon Link MD Type 2 diabetes mellitus with both eyes affected by moderate nonproliferative retinopathy without macular edema, with long-term current use of insulin (CMS/[facility]) 06/10/2024 Refill [facility] [address] [place] [address] Tg Jimenez MD 06/02/2024 9:30 AM EST Clinical Support [facility] [address] [place] [address] Bobby Potter, RN Type 2 diabetes mellitus with both eyes affected by moderate nonproliferative retinopathy without macular edema, with long-term current use of insulin ([facility]) 06/02/2024 Telephone [facility] [address] [place] [address] Karon Link MD 06/02/2024 Travel 06/02/2024 Refill [facility] [address] [place] [address] Karon Link MD Type 2 diabetes mellitus without complication, with long-term current use of insulin ([facility]) 05/19/2024 9:30 AM EST Clinical Support [facility] [address] [place] [address] Bobby Potter, DARREL Type 2 diabetes mellitus with both eyes affected by moderate nonproliferative retinopathy without macular edema, with long-term current use of insulin ([facility]) 05/19/2024 Travel 05/13/2024 Refill [facility] [address] [place] [address] Karon Link MD from Last 3 Months Immunizations Name Administration Dates Next Due Hep B, adult 02/05/2019 Influenza Injectable Quadriv alant Preservative Free IIV4 MDCK 03/04/2020 Influenza injectable quadriv alent IIV4 with preservative 03/12/2019,03/13/2017,04/13/2016,2014 Influenza injectable quadriv alent preservative free 05/01/2023,04/06/2022 Influenza, Split (incl. alex fied surface antigen) 02/25/2013 Influenza, seasonal, injecta ble, preservative free 05/08/2024 Td (adult), 5 Lf tetanus tox oid, preservative free, adsorbed 07/26/2014 Tdap 03/12/2019 Social History Tobacco Use Types Packs/Day Years Used Date Smoking Tobacco: Never Passive Smoke Exposure: Never Smokeless Tobacco: Never Tobacco Cessation:Counseling Given: Not Answered Alcohol Use Standard Drinks/Week Comments Never 0 [...] not to disclose 2021 10:20 AM EDT Last Filed Vital Signs Vital Sign Reading Time Taken Comments Blood Pressure 146/94 08/07/2024 10:14 AM EST Pulse 78 08/07/2024 10:14 AM EST Temperature 36.8 ??C (98.3 ??F) 08/07/2024 10:[address] Respiratory Rate 20 08/07/2024 10:14 AM EST Oxygen Saturation 99% 08/07/2024 10:14 AM EST Inhaled Oxygen Concentration - - Weight 97.5 kg (215 lb) 08/07/2024 10:14 AM EST Height 162.6 cm (5' 4 ) 08/07/2024 10:14 AM EST Body Mass Index 36.9 08/07/2024 10:14 AM EST Plan of Treatment Upcoming Encounters Date Type Department Care Team (Late st Contact Info) Description 10/08/2024 9:15 AM EDT Office Visit [facility] [address] [place] [address] Karon Link MD [address] [place] [address] Health Maintenance Due Date Last Done Comments CT Colonography 1976 Colonoscopy 1976 Colorectal Cancer Screening 1976 FIT DNA/Cologuard 1976 FIT 1976 FOBT 1976 Sigmoidoscopy 1976 Family Planning (PISQ) 1991 Hepatitis A Vaccines (1 of 2 - Risk 2-dose series) 1995 Pneumococcal Vaccine: Pediatrics (0 to 5 Years) and At-Risk Patients (6 to 49) Years) (1 of 2 - PCV) 1995 Hepatitis B Vaccines (2 of 3 - 19+ 3-dose series) 03/05/2019 02/05/2019 Lipid Panel 08/17/2021 08/17/2020, 1209/2019, 04/12/2020 Diabetes: Urine Protein Screening 08/04/2022 08/04/2021, 05/07/2020, 04/12/2020 Eye Exam 10/12/2023 10/11/2022 COVID-19 Vaccine ( season) 2024 09/14/2020, 08/17/2020 Diabetes: Foot Exam 05/01/2024 05/01/2023, 05/01/2023, 05/01/2023, Additional history exists Diabetes: Hemoglobin A1C 11/07/2024 025, 05/08/2024, 05/01/2023, Additional history exists Alcohol/Substance Use Screening 05/08/2025 05/08/2024 Depression Screening 05/08/2025 05/08/2024, 05/08/20 SDOH Screening 05/08/2025 05/08/2024 Tobacco Screening 08/07/2025 08/07/2024 Zoster Vaccines (1 of 2) 2026 DTaP/Tdap/Td Vaccines (2 - Td or Tdap) 03/12/2029 03/12/2019, 07/26/2014 RSV Patients and Patients Aged 60 years or older (1 - 1-dose 75+ series) 2051 HIV Screening Completed 11/13/2022, 07/07/2020 Hepatitis C Screening Completed 11/13/2022 Influenza Vaccine Completed 05/08/2024, , 04/06/2022, Additional history exists HIB Vaccines Aged Out No longer eligi ble based on patient's age to complete this topic HPV Vaccines Aged Out No longer eligi ble based on patient's age to complete this topic IPV Vaccines Aged Out No longer eligi ble based on patient's age to complete this topic Meningococcal Vaccine Aged Out No claire benito eligible based on patient's age to complete this topic RSV under 20 months Aged Out No longe r eligible based on patient's age to complete this topic Rotavirus Vaccines Aged Out No longer eligible based on patient's age to complete this topic Procedures Procedure Name Priority Date/Time Associated Diagnosis Comments POCT GLYCATED HEMOGLOBIN, TOTAL Routine 08/07/2024 10:20 AM EST Type 2 diabetes mellitus with both eyes affected by moderate nonproliferative retinopathy without macular edema, with long-term current use of insulin (CMS/HCC) POCT GLUCOSE Routine 08/07/2024 10:20 AM EST Type 2 diabetes mellitus with both eyes affected by moderate nonproliferative retinopathy without macular edema, with long-term current use of insulin (CMS/HCC) HEPATITIS C AB W/REFL TO HCV RNA, QN, PCR Routine 11/13/2022 11:02 AM EDT Alcohol use disorder, severe, dependence (CMS/HCC) HIV 1/2 ANTIGEN/ANTIBODY, FOURTH GENERATION W/RFL Routine 11/13/2022 11:02 AM EDT Alcohol use disorder, severe, dependence (CMS/HCC) ALBUMIN, RANDOM URINE W/CREATININE Routine 08/04/2021 10:52 AM EST LIPID PANEL, STANDARD Routine 08/17/2020 10:41 AM EDT from Last 3 Months or Most Recently Relevant to Health Maintenance Results * (ABNORMAL) POCT HGB A1C (08/07/2024 10:20 AM EST) Hemoglobin A1C 9.7(A) 4.0 - 6.0 % QC Media Lot # [id number] Lot# Expiration Date Blood 08/07/2024 10:2 0 AM EST Karon Link MD POINT OF CARE TEST ENTER/EDIT ORDERABLES Final Result * POCT Glucose (08/07/2024 10:20 AM EST) Glucose Blood, POC 181 60 - 200 mg/dL Comment:random QC Media Lot # [id number] Lot# Expiration Date Blood Capillary blood specimen / Unknown 08/07/2024 10:20 AM EST Karon Link MD POINT OF CARE TEST ENTER/EDIT ORDERABLES Final Result * Hepatitis C Antibody with Reflex to HCV, RNA, Quantitative, Real-Time PCR (11/13/2022 11:02 AM EDT) Hepatitis C Antibody NON-REACT GEORGE NON-REACT GEORGE [employer] Index <0.02 <1.00 [employer] [facility] Comment: HCV antibody was non-reactive. There is no laboratory evidence of HCV infection. In most cases, no further action is required. However, if recent HCV exposure is suspected, a test for HCV RNA (test code 45092) is suggested. For additional information please refer to http://Voz.io.Pecabu.Yabidu/faq/SNR17t9 (This link is being provided for informational/ educational purposes only.) Blood Venous blood specimen / Unknown 11/13/2022 11:02 AM EDT 11/13/2022 11:03 AM EDT Nirmal Pugh MD LAB BLOOD ORDERABLES Final Resul t Performing Organization Address [facility]/ZIP Co de Phone Number [address], [facility] [place] [address] [facility] [facility] [address] [place] [address] * HIV-1/2 Antigen and Antibodies, Fourth Generation, with Reflexes (11/13/2022 11:02 AM EDT) [facility] HIV Antigen/Antibody, 4th Generation NON-REAC TIVE NON-REAC TIVE [employer] [facility] Comment: HIV-1 antigen and HIV-1/HIV-2 antibodies were not detected. There is no laboratory evidence of HIV infection. PLEASE NOTE: This information has been disclosed to you from records whose confidentiality may be protected by state law. ??If your state requires such protection, then the state law prohibits you from making any further disclosure of the information without the specific written consent of the person to whom it pertains, or as otherwise permitted by law. A general authorization for the release of medical or other information is NOT sufficient for this purpose. ?? For additional information please refer to http://Voz.io.Pecabu.Yabidu/faq/KDF249 (This link is being provided for informational/ educational purposes only.) The performance of this assay has not been clinically validated in patients less than 2 years old. Blood Venous blood specimen / Unknown 11/13/2022 11:02 AM EDT 11/13/2022 11:03 AM EDT Nirmal Pugh MD LAB BLOOD ORDERABLES Final Resul t Performing Organization Address [facility]/ZIP Co de Phone Number [address], [facility] [place] [address] [employer] [facility] [address] [place] [phone] * (ABNORMAL) ALBUMIN, RANDOM URINE W/CREATININE (08/04/2021 10:52 AM EST) Microalbumin Urine 40.0 See Note: mg/dL [facility] Comment: Reference Range: ?? Reference Range Not established Verified by repeat analysis. ?? Microalb/Creat Ratio 889(H) <30 mcg/mg creat [facility] Comment: ?? The ADA defines abnormalities in albumin excretion as follows: ?? Albuminuria Category ?Result (mcg/mg creatinine) ?? Normal to Mildly increased ?? <30 Moderately increased ? 30-299 ?? Severely increased ? > OR = 300 ?? The ADA recommends that at least two of three specimens collected within a 3-6 month period be abnormal before considering a patient to be within a diagnostic category. Creatinine, Urine 45 20 - 320 mg/dL [facility] 08/04/2021 10:5 2 AM EST us Karon Link MD LAB URINE ORDERABLES Final Re sult [facility] [address] * (ABNORMAL) LIPID PANEL, STANDARD (08/17/2020 10:41 AM EDT) Chol/HDLC Ratio 3.3 <5.0 (calc) [facility] Cholesterol, Total 163 <200 mg/dL [facility] HDL Cholesterol 50 > OR = 40 mg/dL [facility] LDL Cholesterol 84 mg/dL (calc) [facility] Comment: Reference range: <100 ?? Desirable range <100 mg/dL for primary prevention; ?? <70 mg/dL for patients with CHD or diabetic patients ?? with > or = 2 CHD risk factors. ?? LDL-C is now calculated using the Rigo ?? calculation, which is a validated novel method providing ?? better accuracy than the Friedewald equation in the ?? estimation of LDL-C. ?? Lauro PATHAK et al. RICKEY. 2013;310(19): 8536-6222 ?? (http://education.TaskRabbit.Yabidu/faq/LPJ586) Non-HDL Cholesterol 113 <130 mg/dL (calc) [facility] Comment: For patients with diabetes plus 1 major ASCVD risk ?? factor, treating to a non-HDL-C goal of <100 mg/dL ?? (LDL-C of <70 mg/dL) is considered a therapeutic ?? option. Triglycerides 195(H) <150 mg/dL [facility] 08/17/2020 10:4 1 AM EDT us Karon Link MD LAB BLOOD ORDERABLES Final Re sult [facility] [address] from Last 3 Months or Most Recently Relevant to Health Maintenance Insurance [facility] F[facility] Care Teams Jewish History Professor Relationship Specialty Start Date End Date Karon Link MD [address] [place] [id number] PCP - General Family Medicine 06/04/18
--- OUTSIDE RECORDS SUMMARY | 2024-08-07 13:12 | XMS_ITS | Encounter Summary ---
Author Organization [employer] Address [address] [place] [address] Care Team Providers Care Stitcher Hand Name Role Phone Karon Link MD Primary Care Provider [phone] Encounter Details Date Type Department Care Team ([facility] st Contact Info) Description 06/12/[address] [facility]S [address] [place], [place] [id number] Araceli Vanessa, DARREL [address] [place] [address] Social History Tobacco Use Types Packs/Day Years Used Date Smoking Tobacco: Never Passive Smoke Exposure: Never Smokeless Tobacco: Never Alcohol Use Standard Drinks/Week Comments Never 0 (1 standard drink = 0.6 oz pur e alcohol) Depression Answer Date Recorded Patient Health Questionnaire-9 Score 6 07/05/2022 Housing Stability Answer Date Recorded What is your housing situation today? I have cara ley 04/09/[address] you li ve. Do you have problems with any of the following? None of the above 04/09/2023 Food Insecurity Answer Date Recorded Within the past 12 months, y ou worried that your food would run out before you got money to buy more: Never True 04/09/2023 Within the past 12 months,th e food you bought just didn't last and you didn't have enough money to get more: Never True 11/2022 Transportation Answer Date Recorded In the past 12 months, has l ack of transportation kept you from medical appts, meetings, work or from getting things needed for daily living? No 04/09/2023 Utilities Answer Date Recorded In the past 12 months, has t he electric, gas, oil or water company threatened to shut off services in your home? No 04/09/2023 Depression Answer Date Recorded Patient Health Questionnaire-2 Score 2 07/05/2022 Sex and Gender Information Value Date Recorded Sex Assigned at Male 04/03/2022 10:20 AM EDT Legal Sex Male 10:20 AM EDT Gender Identity Choose not to disclose 10:20 AM EDT Sexual Orientation Choose not to disclose 2021 10:20 AM EDT documented as of this encounter Miscellaneous Notes * Telephone Encounter - Araceli Vanessa RN - 06/12/2023 3:24 PM EST Received all from [facility] Chemistry lab regarding labs drawn today during appt. Pt fasting sugar today is 401. Repeated and confirmed with the lab. Will task to the team nurses to follow up as needed. documented in this encounter Plan of Treatment Upcoming Encounters Date Type Department Care Team (Late st Contact Info) Description 10/08/2024 9:15 AM EDT Office Visit [facility] PEDS [address] [place] [address] Karon Link MD [address] [place] [address] documented as of this encounter Visit Diagnoses Not on filedocumented in this encounter Additional Health Concerns Assessment Noted Time PHQ-9 Depression Total Score: 6 07/05/19 23 10:38 AM EST documented as of this encounter Care Teams Stitcher Hand Relationship Specialty Start Date End Date Karon Link MD [address] [place] [address] PCP - General Family Medicine 06/04/18 documented as of this encounter
--- OUTSIDE RECORDS SUMMARY | 2024-08-07 13:12 | XMS_ITS | Encounter Summary ---
Author Organization [employer] Address [address] [facility] 7 [place] [address] Care Team Providers Care Agricultural Research Director Name Role Phone Karon Link MD Primary Care Provider [phone] Encounter Details Date Type Department Care Team (Latest Contact Info) Description 08/07/2024 10:15 AM EST Office Visit [facility] CHC MED & PEDS [address] [place] [address] Karon Link MD [address] [place] [address] ETOH abuse (Primary Dx); Type 2 diabetes mellitus with both eyes affected by moderate nonproliferative retinopathy without macular edema, with long-term current use of insulin ([facility]) Social History Tobacco Use Types Packs/Day Years [...] AM EDT documented as of this encounter Last Filed Vital Signs Vital Sign Reading [...] Mass Index 36.9 08/07/2024 10:14 AM EST documented in this encounter Plan of Treatment Upcoming Encounters Date Type Department Care Team (Late st Contact Info) Description 10/08/2024 9:15 AM EDT Office Visit [facility] CHC MED & PEDS [address] [place], [place] [phone] Karon Link MD [address] [place] [address] Scheduled Orders Name Type Priority Associated Diagnoses Orde r Schedule Albumin, Random Urine W/Creatinine Lab Routine Type 2 diabetes mellitus with both eyes affected by moderate nonproliferative retinopathy without macular edema, with long-term current use of insulin (CMS/HCC) ETOH abuse Expected: 08/07/2024 (Approximate), Expires: 08/07/2025 Lipid Panel, Standard Lab Routine Type 2 diabetes mellitus with both eyes affected by moderate nonproliferative retinopathy without macular edema, with long-term current use of insulin (CMS/HCC) ETOH abuse Expected: 08/07/2024 (Approximate), Expires: 08/07/2025 Lipase Lab Routine Type 2 diabetes mellitus with both eyes affected by moderate nonproliferative retinopathy without macular edema, with long-term current use of insulin (CMS/HCC) ETOH abuse Expected: 08/07/2024, Expires: 08/07/2025 CBC auto differential Lab Routine Type 2 diabetes mellitus with both eyes affected by moderate nonproliferative retinopathy without macular edema, with long-term current use of insulin (CMS/HCC) ETOH abuse Expected: 08/07/2024 (Approximate), Expires: 08/07/2025 Comprehensive Metabolic Panel Lab Routine Type 2 diabetes mellitus with both eyes affected by moderate nonproliferative retinopathy without macular edema, with long-term current use of insulin (CMS/HCC) ETOH abuse Expected: 08/07/2024 (Approximate), Expires: 08/07/2025 PSA, Screen Lab Routine Type 2 diabetes mellitus with both eyes affected by moderate nonproliferative retinopathy without macular edema, with long-term current use of insulin (CMS/HCC) ETOH abuse Expected: 08/07/2024 (Approximate), Expires: 08/07/2025 TSH W/Reflex to FT4 Lab Routine Type 2 diabetes mellitus with both eyes affected by moderate nonproliferative retinopathy without macular edema, with long-term current use of insulin (CMS/HCC) ETOH abuse Expected: 08/07/2024 (Approximate), Expires: 08/07/2025 Vitamin B12/Folate, Serum Panel Lab Routine Type 2 diabetes mellitus with both eyes affected by moderate nonproliferative retinopathy without macular edema, with long-term current use of insulin (CMS/HCC) ETOH abuse Expected: 08/07/2024, Expires: 08/07/2025 Alpha-Fetoprotein, Tumor Marker Lab Routine ETOH abuse Expected: 08/07/2024 (Approximate), Expires: 08/07/2025 documented as of this encounter Procedures Procedure Name Priority Date/Time Associated Diagnosis Comments POCT GLYCATED HEMOGLOBIN, TOTAL Routine 08/07/2024 10:20 AM EST Type 2 diabetes mellitus with both eyes affected by moderate nonproliferative retinopathy without macular edema, with long-term current use of insulin ([facility]) POCT GLUCOSE Routine 08/07/2024 10:20 AM EST Type 2 diabetes mellitus with both eyes affected by moderate nonproliferative retinopathy without macular edema, with long-term current use of insulin ([facility]) documented in this encounter Results * (ABNORMAL) POCT HGB A1C (08/07/2024 10:20 AM EST) Hemoglobin A1C 9.7(A) 4.0 - 6.0 % QC Media Lot # [id number] Lot# Expiration Date 426 Blood 08/07/2024 10:2 0 AM EST Karon Link MD POINT OF CARE TEST ENTER/EDIT ORDERABLES Final Result * POCT Glucose (08/07/2024 10:20 AM EST) Glucose Blood, POC 181 60 - 200 mg/dL Comment:random QC Media Lot # [id number] Lot# Expiration Date 7,325 Blood Capillary blood specimen / Unknown 08/07/2024 10:20 AM EST Karon Link MD POINT OF CARE TEST ENTER/EDIT ORDERABLES Final Result documented in this encounter Visit Diagnoses Diagnosis ETOH abuse- Primary Nondependent alcohol abuse, unspecified drinking behavior Type 2 diabetes mellitus with both eyes affected by moderate nonproliferative retinopathy without macular edema, with long-term current use of insulin ([facility]) documented in this encounter Additional Health Concerns Assessment Noted Time PHQ-9 Depression Total Score: 1 05/08/20 24 9:22 AM EST documented as of this encounter Care Teams Agricultural Research Director Relationship Specialty Start Date End Date Karon Link MD [address] [place] [id number] PCP - General Family Medicine 06/04/18 documented as of this encounter
--- OUTSIDE RECORDS SUMMARY | 2024-08-07 13:12 | XMS_ITS | Encounter Summary ---
Author Organization [employer] Address [address] [facility] 7 [place] [address] Care Team Providers Care Tucking Machine Operator Name Role Phone Karon Link MD Primary Care Provider [phone] Reason for Visit * Reason Comments Med Refill Encounter Details Date Type Department Care Team ([facility] st Contact Info) Description 07/05/2024 Refill [facility] CHC MED & PEDS [address] [place], [place] [phone] Karon Link MD [address] [place] [address] Type 2 diabetes mellitus without complication, with long-term current use of insulin ([facility]) Social History Tobacco Use Types Packs/Day Years [...] Upcoming Encounters Date Type Department Care Team ([facility] st Contact Info) Description 10/08/2024 9:15 AM EDT Office Visit [facility] CHC MED & PEDS [address] [place] [address] Karon Link MD [address] [place] [address] documented as of this encounter Visit Diagnoses Diagnosis Type 2 diabetes mellitus without complication, with long-term current use of insulin ([facility]) documented in this encounter Additional Health Concerns Assessment Noted Time PHQ-9 Depression Total Score: 1 05/08/20 24 9:22 AM EST documented as of this encounter Care Teams Tucking Machine Operator Relationship Specialty Start Date End Date Karon Link MD [address] [place] [address] PCP - General Family Medicine 06/04/18 documented as of this encounter
--- OUTSIDE RECORDS SUMMARY | 2024-08-07 13:12 | XMS_ITS | Encounter Summary ---
Author Organization [employer] Address [address] [place] [address] Care Team Providers Care Social Media Marketer Name Role Phone Karon Link MD Primary Care Provider [phone] Reason for Visit * Reason Onset Date Comments appt r/s 07/10/2022 Encounter Details Date Type Department Care Team ([facility] st Contact Info) Description 07/10/2022 Telephone [facility] CHC MED & PEDS [address] [place], [place] [phone] Karon Link MD [address] [place] [address] appt r/s Social History Tobacco Use Types Packs/Day Years [...] not to disclose 2021 10:20 AM EDT COVID-19 Exposure Response Date Recorded In the last 10 days, have yo u been in contact with someone who was confirmed or suspected to have Coronavirus/COVID-19? 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 Pt states that appt is better on Sunday or Sunday. Please contact pt at [phone] documented in this encounter Plan of Treatment Upcoming Encounters Date Type Department Care Team ([facility] st Contact Info) Description 10/08/2024 9:15 AM EDT Office Visit [facility] MED & PEDS [address] [place] [address] Kraon Link MD [address] [place] [address] documented as of this encounter Visit Diagnoses Not on filedocumented in this encounter Additional Health Concerns Assessment Noted Time PHQ-9 Depression Total Score: 6 07/05/19 23 10:38 AM EST documented as of this encounter Care Teams Social Media Marketer Relationship Specialty Start Date End Date Karon Link MD [address] [place] [address] PCP - General Family Medicine 06/04/18 documented as of this encounter
[2024-08-07 14:25] LABS: MANUAL DIFF FLAG NO
[2024-08-07 14:29] LABS: Basophils Percent Auto 0.4 % (0-2); Eosinophils Absolute Auto 0.2 X10*3/uL (0.0-0.4); Eosinophils Percent Auto 3.3 % (0-4); Hematocrit 37.4 % (42.0-52.0); Hemoglobin 13.1 g/dl (14.0-18.0); Imm Gran Abs Auto 0.01 X10*3/uL (0.00-0.03); Imm Gran Pct Auto 0.2 % (0.0-0.4); Lymphocytes Absolute Auto 1.1 X10*3/uL (1.2-4.9); Lymphocytes Percent Auto 21.2 % (20-40); Mean Corpuscular Hemoglobin 30.9 pg (27.0-33.0); Mean Corpuscular Volume 88.2 fL (80.0-98.0); Mean Platelet Volume 10.5 fL (9.4-12.4); Monocytes Absolute Auto 0.7 X10*3/uL (0.1-1.2); Monocytes Percent Auto 12.9 % (2-11); Neutrophils Absolute Auto 3.2 x10*3/uL (2.0-8.3); Platelet Count 264 X10*3/uL (160-400); Red Blood Count 4.24 X10*6/uL (4.60-5.80); Red Cell Distribution Width 12.7 % (11.0-16.0); White Blood Count 5.2 X10*3/uL (4.8-10.8)
[2024-08-07 14:52] LABS: Alanine Aminotransferase 26 U/L (0-40); Albumin Level 3.9 g/dL (3.5-5.0); Alkaline Phosphatase 80 U/L (39-117); Anion Gap 14 (12-20); Aspartate Amino Transferase 34 U/L (5-37); Bilirubin Total 0.5 mg/dL (0.0-1.0); Blood Urea Nitrogen 18 mg/dL (9-16); Calcium 9.7 mg/dL (8.4-10.2); Carbon Dioxide 23 mmol/L (22-29); Chloride 103 mmol/L (96-108); Cholesterol 219 mg/dL (<200); Estimated Glomerular Filt Rate > 60; Glucose Random 163 mg/dL (60-115); HDL Cholesterol 75 mg/dL (>40); LDL Cholesterol Calculated 124 mg/dL (<100); Lipase 27 U/L (8-78); Potassium 4.2 mmol/L (3.3-5.1); Sodium 136 mmol/L (135-145); Total Protein 7.7 g/dL (6.5-8.0); Triglycerides 104 mg/dL (<150)
[2024-08-07 15:08] LABS: TSH reflex Free T4 1.35 uIU/mL (0.32-4.0)
[2024-08-07 15:22] LABS: Creatinine Urine 50.57 mg/dL
[2024-08-07 15:25] LABS: Folate 12.6 ng/mL (> or = 4.0); Vitamin B12 321 pg/mL (200-900)
[2024-08-08 11:53] LABS: Alpha Fetoprotein 2.9 ng/mL (<6.1)
== END 2024-08-07 10:54 | disposition home or self-care (01) ==
LOC: HO.CHCLDS 10:53
PROVIDERS: Visit Provider Pediatrics
DX: F10.10 Alcohol abuse, uncomplicated (principal); E11.3393 Type 2 diabetes mellitus with moderate nonproliferative diabetic retinopathy without macular edema, bilateral; Z79.4 Long term (current) use of insulin
CPT/HCPCS: 36415; 80053; 80061; 82043; 82105; 82570; 82607; 82746; 83690; 84153; 84443; 85025

== ENCOUNTER 2024-11-22 12:06 | Emergency (ER) | payer MEDICAID, OTHER, SELFPAY ==
--- NOTE | ~2024-11-22 | XR_ITS ---
CLINICAL HISTORY: atraumatic pain x1 week Four views of the right shoulder. COMPARISON: None provided. FINDINGS: Proximal right humerus, the right scapula, and the right clavicle appear intact. Humeral head is appropriately seated in the glenoid. Tiny osteophytes present along the inferior margin of the glenoid. Moderate hypertrophy of the right acromioclavicular joint. Visualized portions of the right lung are clear. IMPRESSION: 1. No radiographic evidence of acute injury to the right shoulder. 2. Moderate acromioclavicular joint degenerative changes. This document has been electronically signed by: Florentino Landin MD on 11/22/2024 12:54:15
[2024-11-22 12:11] VITALS: BP 148/95; PULSE 85; RESP 18; TEMP 36.2; O2SAT 99; BMI 36.8
--- NOTE | 2024-11-22 12:18 | ED.GENADULT ---
HPI - General Adult General Chief complaint: Extremity Injury, Lower Stated complaint: PCP sent over for xrays Time Seen by Provider: 11/22/24 12:11 Source: patient and family Mode of arrival: ambulatory Limitations: no limitations History of Present Illness ED Provider: Jenifer Duron NP HPI narrative: Patient is a 49-year-old male who presents emergency department for evaluation. Over the past 1-1.5 weeks has been experiencing atraumatic right shoulder pain. He was initially seen at a walk-in clinic and given an outpatient order for an x-ray. He had not yet had this obtained. 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 He was evaluated at the [facility] walk-in clinic and was advised to come to the hospital to have an x-ray obtained. He denies any numbness or tingling to the arm. Has not had prior issues of pain to this shoulder. Pain exacerbates with movement of the arm such as abduction or attempting overhead extension. Pain is diffusely throughout the shoulder. Related Data Previous Rx's ?Medication ?Instructions ?Recorded levofloxacin 750 mg tablet 750 mg PO Q24H 6 days #6 tabs 03/12/22 metronidazole 500 mg tablet 500 mg PO Q8H 7 days #21 tabs 03/12/22 ondansetron 4 mg disintegrating 4 mg PO Q8H PRN nausea and 03/12/22 tablet vomiting #14 tabs oxycodone 5 mg tablet 5 mg PO Q8H PRN pain #7 tabs 03/12/22 Allergies Allergy/AdvReac Type Severity Reaction Status Date / Time No Known Allergies Allergy Verified 11/22/24 12:14 Review of Systems Review of Systems: Yes all other systems are reviewed and are negative PMFSH Past Medical History Attestation statement: The following information was validated with the patient. Source: old records reviewed Social History Social History (System 06/13/23 @ 14:49 by Grazyna Hinds) Smoked in Last 30 Days: No Use of substances other than those prescribed or required for medical reasons: No Advance Directives: No Advance Directives Information Provided: No Do you have a plan to hurt others: No Plan Physical Exam ED Vital Signs: Vital Signs - 24 hr 11/22/24 12:11 11/22/24 12:45 Temperature 97.2 F 97.6 F Pulse Rate 85 81 Respiratory Rate 18 16 Blood Pressure 148/95 H 147/81 H Pulse Oximetry 99 98 Oxygen Delivery Method Room Air Room Air BMI result Body Mass Index 36.8 Appearance: Alert.?Oriented to person, place and time. No acute distress.?Normal affect. Neck: Normal inspection.? Neck supple.??Full range of motion. CVS: Heart sounds normal. Normal heart rate and rhythm.? Pulses normal.?? Respiratory: No respiratory distress.? Lung sounds clear to auscultation bilaterally?? Skin: Skin warm and dry.? Normal skin color.? ? Extremities: No lower extremity edema.? Decreased AROM to the right shoulder, elicited pain with abduction, forward extension, external rotation. Diffuse tenderness throughout the shoulder. joint Neuro: Moves all extremities spontaneously. Sensation intact bilaterally. Ambulates with normal steady gait. Course Reevaluation(s) Reevaluation #1: no evidence of acute fracture dislocation there is however moderate acromioclavicular joint degenerative changes. Reviewed symptomatic treatment with patient, outpatient follow-up with PCP/Orthopedics. Stable for discharge at this time. Time: 12:59 Medications Administered Discontinued Medications Generic Name Dose Route Start Last Admin Trade Name Freq PRN Reason Stop Dose Admin Ketorolac Tromethamine 30 mg 11/22/24 12:17 11/22/24 12:42 Ketorolac Tromethamine 30 Mg/Ml Vial IM 11/22/24 12:18 30 mg ONCE ONE Administration Medical Decision Making Medical Decision Making [facility] Narrative: Patient is a 49-year-old male presents emergency department for evaluation of atraumatic right shoulder pain over the past week or so as per HPI, yesterday had movement of his arm hurt heard a loud cracking noise increasing his degree of pain as per HPI. On examination the extremities neurovascularly intact distally, he is wearing a sling to the shoulder at this time. There was no obvious deformity. There is no rashes or lesions. No associated gastrointestinal symptoms to suggest referred pain such as from acute hepatobiliary etiology. No associated chest pain or shortness of breath, do not suspect referred pain from ACS. Will obtain XR of the right shoulder for further evaluation, will trial Toradol for analgesia at this time. Differential Diagnosis Differential Diagnoses: The differential diagnosis associated with the presentation includes (Rotator cuff injury, impingement, arthritis, sprain, fracture, low suspicion for dislocation based on examination. VTE.) Independent Interpretation I performed an independent interpretation of an: Plain X-Ray (No acute fracture/ dislocation) Radiology Impression Discussion of test interpretation with radiology: I have reviewed the radiologist's reading. Radiologist Impression: Four views of the right shoulder. COMPARISON: None provided. FINDINGS: Proximal right humerus, the right scapula, and the right clavicle appear intact. Humeral head is appropriately seated in the glenoid. Tiny osteophytes present along the inferior margin of the glenoid. Moderate hypertrophy of the right acromioclavicular joint. Visualized portions of the right lung are clear. IMPRESSION: 1. No radiographic evidence of acute injury to the right shoulder. 2. Moderate acromioclavicular joint degenerative changes. Independent Historian Clinical information obtained from an independent historian. History obtained from or confirmed by: Spouse External Record Review External record reviewed: Outpatient record Prescription Management I considered prescription management with: Pain Medication Chronic Conditions Patient?s care impacted by: Other (See narrative above) Discharge Plan Discharge Clinical Impression: AC (acromioclavicular) joint arthritis Patient Disposition: Home, Self-Care Instructions: Shoulder Pain (ED) Additional Instructions: X-ray today does not show evidence of a broken bone/fracture or dislocation in your shoulder which is reassuring. You do however have arthritis changes in the shoulder joint. Likely attributing to your pain. It is important to rest over the next few days, apply ice/heat for 10-15 minutes 4-6 times daily. I would advise that you only continue to use the sling that your arm is currently in over the next day if absolutely necessary to help alleviate pain. Otherwise please stop the use of the sling as this can lead to ?freezing? of the shoulder joint. Topical Lidoderm patches can be applied to the shoulder to help with pain, leave on for 12 hours and then remove for 12 hours period prevent skin irritation. You can take ibuprofen 200 mg, 3 tablets (600mg) every 6-8 hours as needed for pain, in addition to Tylenol 500 mg, 2 tablets (1,000mg) every 4-6 hours as needed for pain, but not to exceed 3 doses daily (3,000mg).? Please contact your primary care doctor's office to arrange for a follow-up visit. If you continue to have persistent pain they may consider a course of physical therapy and/or referral to Orthopedics. Prescriptions: No Action levofloxacin 750 mg tablet 750 mg PO Q24H 6 Days Qty: 6 0RF Rx Instructions: Start this medication on 03/13/2022, 1st dose given in the emergency department at 02:00 03/12/2022 metronidazole 500 mg tablet 500 mg PO Q8H 7 Days Qty: 21 0RF ondansetron 4 mg tablet,disintegrating 4 mg PO Q8H PRN (Reason: nausea and vomiting) Qty: 14 0RF oxycodone 5 mg tablet 5 mg PO Q8H PRN (Reason: pain) Qty: 7 0RF Rx Instructions: Partial Fill upon patient request. Colitis Referrals: Karon Link MD [Primary Care Provider, Medical] Interventions: ED Discharge Assessment Last Done: 11/22/24 13:12 Discharge Date/Time: 11/22/24 13:16 Print Language: Moldovan
[2024-11-22] MEDS: Ketorolac Tromethamine 30 MG/ML VIAL IM (12:42)
[2024-11-22 12:45] VITALS: BP 147/81; PULSE 81; RESP 16; TEMP 36.4; O2SAT 98
--- NOTE | 2024-11-22 12:48 | PC.NURSE ---
PAtient A&O x 3. Patient presents to Ed c/o right shoulder pain non radiating. Numbness in hands noted pain rated 5/10 when not moving extremity. Patient was at work when he heard a crack noise and have subsequent shoulder pain following. +CMS limited ROM in right shoulder. Xray performed on shoulder, results pending. VSS and up to date Plan of care on going
[2024-11-22 13:12] VITALS: BP 147/81; PULSE 81; RESP 16; TEMP 36.4; O2SAT 98
== END 2024-11-22 13:16 | disposition home or self-care (01) ==
PROVIDERS: Emergency Provider Emergency Medicine; PCP Pediatrics
DX: M19.012 Primary osteoarthritis, left shoulder (principal); M25.511 Pain in right shoulder
CPT/HCPCS: 73030; 96372; 99284; J1885

== ENCOUNTER → 2024-11-22 12:17 | Outpatient (BNV) | payer MEDICAID, SELFPAY | PROVIDERS: Emergency Provider Emergency Medicine; PCP Pediatrics; Visit Provider Radiology Diagnostic Radiology | DX: M19.011 Primary osteoarthritis, right shoulder (principal) | CPT/HCPCS: 73030 ==

== ENCOUNTER 2025-05-06 08:58 | Outpatient (REF) | payer MEDICAID, OTHER, SELFPAY ==
--- NOTE | ~2025-05-06 | US_ITS ---
CLINICAL HISTORY: ethanol abuse, r o cirrhosis US abdomen complete Comparison: None provided Findings: Suboptimal exam due to limited acoustic window because of the body habitus and bowel gas shadowing, the pancreatic body and tail, superior and posterior aspect of the liver, upper and lower pole of the right kidney, majority of the spleen are not well visualized. Allowing for the limitation: The visualized pancreas head is normal. The visualized aorta and inferior vena cava are normal caliber. The liver is normal in size, right lobe length is 15.7 cm. Normal in echogenicity, no discrete lesion is visualized in the imaged liver. No intrahepatic bile duct dilatation. The common duct is 2 mm in diameter. The gallbladder is normal. Negative sonographic Hartmann sign. The main portal vein is patent with antegrade flow. The right kidney is grossly normal, 10.4 cm in length. The left kidney is grossly normal, 11.6 cm in length. The spleen is grossly unremarkable, 8.3 cm in length. No free fluid in the abdomen. Impression: Suboptimal exam due to limited acoustic window, no apparent sonographic abnormality. This document has been electronically signed by: Linda Balderas MD on 05/06/2025 11:24:01
--- OUTSIDE RECORDS SUMMARY | 2025-05-06 09:29 | XMS_ITS | Encounter Summary ---
Author Organization [employer] Address [address] [facility] 7 [place] [address] Care Team Providers Care Hand Woodworking Sander Name Role Phone Karon Link MD Primary Care Provider [phone] Reason for Visit * Reason Comments Med Refill Encounter Details Date Type Department Care Team ([facility] st Contact Info) Description 06/16/2024 Refill [facility] CHC MED & PEDS [address] [place] [address] Karon Link MD [address] [place] [address] Type 2 diabetes mellitus with both eyes affected by moderate nonproliferative retinopathy without macular edema, with long-term current use of insulin ([facility]) Social History Tobacco Use Types Packs/Day [...] as of this encounter Plan of Treatment Not on file documented as of this encounter Visit Diagnoses Diagnosis Type 2 diabetes mellitus with both eyes affected by moderate nonproliferative retinopathy without macular edema, with long-term current use of insulin (HCC) documented in this encounter Additional Health Concerns Assessment Noted Time PHQ-9 Depression Total Score: 1 05/08/20 24 9:22 AM EST documented as of this encounter Care Teams Hand Woodworking Sander Relationship Specialty Start Date End Date Karon Link MD [address] [place] [address] PCP - General Family Medicine 06/04/18 documented as of this encounter
--- OUTSIDE RECORDS SUMMARY | 2025-05-06 09:29 | XMS_ITS | Encounter Summary ---
Author Organization [employer] Address [address] [facility] 7 [place] [address] Care Team Providers Care Newspaper Inserter Name Role Phone Karon Link MD Primary Care Provider [phone] Reason for Visit * Reason Comments Med Refill Encounter Details Date Type Department Care Team ([facility] st Contact Info) Description 12/02/2024 Refill [facility] [address] [place] [address] Karon Link MD [address] [place] [address] Social History Tobacco Use Types Packs/Day Years [...] documented as of this encounter Care Teams Newspaper Inserter Relationship Specialty Start Date End Date Karon Link MD [address] [place] [id number] PCP - General Family Medicine 06/04/18 documented as of this encounter
--- OUTSIDE RECORDS SUMMARY | 2025-05-06 09:29 | XMS_ITS | Encounter Summary ---
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 Pt states that appt is better on Sunday or Sunday. Please contact pt at [phone] documented in this encounter Plan of Treatment Not on file documented as of this encounter Visit Diagnoses Not on filedocumented in this encounter Additional Health Concerns Assessment Noted Time PHQ-9 Depression Total Score: 6 07/05/19 23 10:38 AM EST documented as of this encounter Care Teams Strategic Marketing Leader Relationship Specialty Start Date End Date Karon Link MD [address] [place] [address] PCP - General Family Medicine 06/04/18 documented as of this encounter
--- OUTSIDE RECORDS SUMMARY | 2025-05-06 09:29 | XMS_ITS | Clinical Summary ---
Author Organization [facility] Address [address] [place] [address] Care Team Providers Care Microbial Specialist Name Role Phone Karon Link Primary Care Provider [phone] Allergies No known active allergies Medications aspirin [...] of right eye 06/08/2020 Pterygium, right 06/08/2020 Encounters Date Type Department Care Team Description 03/25/2025 Transcribe Orders [facility] [address] [place] [address] Karon Link Type 2 diabetes mellitus with both eyes affected by moderate nonproliferative retinopathy without macular edema, with long-term current use of insulin (Primary Dx); Persistent proteinuria from Last 3 Months Family History Medical History Relation Name Comments Diabetes Father Diabetes Mother Relation Name Status Comments Father Mother Social History Tobacco Use Types Packs/Day Years Used Date Smoking Tobacco: Former Cigarettes 2 0 08/12/1992 - 08/12/1994 Passive Smoke Exposure: [...] 73 08/10/2022 2:03 PM EST Temperature 36.7 C (98 F) 08/10/2022 2:03 PM EST Respiratory Rate 16 08/10/2022 2:03 PM EST Oxygen Saturation 97% 03/10/2020 9:10 AM EDT Inhaled Oxygen Concentration - - Weight 88 kg (194 lb) 08/10/2022 2:03 PM EST Height 155 cm (5' 1.02 ) 03/19/2020 10:02 AM EDT Body Mass Index 36.63 03/19/2020 10:02 AM EDT Plan of Treatment Upcoming Encounters Date Type Department Care Team (Late st Contact Info) Description 07/08/2025 10:00 AM EST Office Visit [facility] [address] [place] [id number] Hospitality Host: Lisa Brown MD [address] [place] [id number] Health Maintenance Due Date Last Done Comments [...] 09/09/2020, 0 09/09/2020, 09/09/2020, Additional history exists Alcohol/Substance Use Screening 06/04/2024 Depression Screening and Follow-Up 06/04/2024 Social Drivers of Health Kerry ual Screening 06/04/2024 Influenza Vaccine (#1) 2025 , 05/01/2023, 04/06/2022, Additional history exists COVID-19 Vaccine (3 - 2024-2 6 season) 2025 09/14/2020, 08/17/2020 DTaP,Tdap,and Td Vaccines (2 - Td or Tdap) 03/12/2029 03/12/2019, 07/26/2014 Medical Devices Implanted Type Area Laborer Cutting Tool Device Identifier Shelf Expiration Date Model / Serial / Lot Lens Intraocular Ashperic Natural Single Piece Acrylic With Blue Light Filter [id number] 21.5d - [id number] - [id number] Implanted:Qty: 1 on 03/10/2020 by Ector Mcleod MD at [facility] Lens MAME 07/13/2024 [id number] 21.5 / [id number] / Insurance [facility]FREE CARE Advance Directives * Full Code (Latest Code Status on File) Date Activated Date Inactivated Comments 03/10/2020 7:42 AM 03/10/2020 3:12 PM Care Teams Microbial Specialist Relationship Specialty Start Date End Date Karon Link [address] [place] [address] PCP - General 12/21/16
--- OUTSIDE RECORDS SUMMARY | 2025-05-06 09:29 | XMS_ITS | Encounter Summary ---
Author Organization [employer] Address [address] [place] [address] [address] [place] [address] Care Team Providers Care Insert Molding Operator Name Role Phone Karon Link MD Primary Care Provider [phone] Encounter Details Date Type Department Care Team ([facility] st Contact Info) Description 02/14/2023 Orders Only [facility] [address] [place], [place] [id number] Shaila Harris LPN Social History Tobacco Use [...] EDT Gender Identity Choose not to disclose 2 10:20 AM EDT Sexual Orientation Choose not to disclose 2021 10:20 AM EDT documented as of this encounter Plan of Treatment Not on file documented as of this encounter Visit Diagnoses Not on filedocumented in this encounter Additional Health Concerns Assessment Noted Time PHQ-9 Depression Total Score: 6 07/05/19 23 10:38 AM EST documented as of this encounter Care Teams Insert Molding Operator Relationship Specialty Start Date End Date Karon Link MD [address] [place] [address] PCP - General Family Medicine 06/04/18 documented as of this encounter
--- OUTSIDE RECORDS SUMMARY | 2025-05-06 09:29 | XMS_ITS | Clinical Summary ---
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 8 mL 11 07/05/19 23 Active clobetasol (Temovate) 0.05 % cream Apply topically 2 times daily. 45 g 3 11/07/19 23 Active TRUEplus Lancets 33G misc 12/16/19 23 Active lisinopril 40 MG tablet TAKE ONE TABLET BY MOUTH EVERY MORNING 90 tablet 3 03/11/20 24 Active Alcohol Swabs (Alcohol Prep) 70 % pads USE TWO DAILY 100 each 11 04/11/20 24 Active Continuous Glucose Desk Monitor (FreeStyle Frederic 2 [place]) deviceIndications:T ype 2 diabetes mellitus with both eyes affected by moderate nonproliferative retinopathy without macular edema, with long-term current use of insulin ([facility]) Scan sensor every 8 hours 1 each 05/08/20 24 Active Continuous Glucose Sensor (FreeStyle Frederic 2 Sensor) miscIndications:Typ e 2 diabetes mellitus with both eyes affected by moderate nonproliferative retinopathy without macular edema, with long-term current use of insulin ([facility]) Apply 1 sensor every 14 days 2 each 05/08/20 24 Active glucose blood (FreeStyle Precision Juan Daniel Test) test stripIndications:Ty pe 2 diabetes mellitus with both eyes affected by moderate nonproliferative retinopathy without macular edema, with long-term current use of insulin ([facility]) Use to test blood sugar 5 times daily 100 each 05/08/20 24 2024 Active naltrexone (Depade) 50 MG tablet Take 1 tablet (50 mg) by mouth Once per day. 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 30 tablet 11/13/19 25 Active diclofenac (Cataflam) 50 MG tabletIndications:C hronic left-sided low back pain without sciatica Take 1 tablet (50 mg) by mouth if needed in the morning, at noon, and at bedtime (pain). 90 tablet 11/13/19 25 Active nabumetone (Relafen) 500 MG tablet Take 1 tablet (500 mg) by mouth 2 times daily. 60 tablet 11/23/19 25 2025 Active FLUoxetine (PROzac) 40 MG capsule TAKE ONE CAPSULE EVERY MORNING 30 capsule 3 12/30/19 25 Active TechLite Pen [place] 32G X 4 MM miscIndications:Typ e 2 diabetes mellitus without complication, with long-term current use of insulin ([facility]) USE FOUR TIMES DAILY 100 each 02/13/20 25 Active Dulaglutide (Trulicity) 1.5 MG/0.5ML solution auto-injector Inject 1.5 mg under the skin 1 (one) time per week. 2 mL 02/20/20 Active atorvastatin (Lipitor) 10 MG tabletIndications:T ype 2 diabetes mellitus without complication, with long-term current use of insulin (HCC) TAKE ONE TABLET EVERY MORNING 90 tablet 1 02/26/20 Active gabapentin (Neurontin) 300 MG capsule TAKE ONE CAPSULE EVERY NIGHT AT BEDTIME 30 capsule 3 03/10/20 25 Active omeprazole (PriLOSEC) [address] capsule TAKE ONE CAPSULE EVERY MORNING 90 capsule 03/17/20 25 Active insulin aspart FlexPen (NovoLOG) 100 UNIT/ML penIndications:Type 2 diabetes mellitus without complication, with long-term current use of insulin (HCC) INJECT 8 TO 16 UNITS SUBCUTANEOUSLY BEFORE BREAKFAST, 12 TO 18 UNITS SUBCUTANEOUSLY BEFORE LUNCH AND 16 TO 20 UNITS SUBCUTANEOUSLY BEFORE SUPPER 15 mL 1 04/06/20 Active Active Problems Problem Noted Date Diagnosed Date Alcohol use disorder, severe, dependence (CMS/HC C) 02/19/2025 Chronic left-sided low back pain without sciatic a 11/12/2024 Assessment & Plan (11/26/2024 9:40 AM EDT): Patient reports left-sided low back pain that started about 2 weeks ago. On examination, paraspinal muscle spasms were noted, particularly on the right side with contralateral cervical spasms. Negative straight leg raise test and normal range of motion were observed. The right hip appears rotated, likely due to pain avoidance during ambulation, causing the right leg to appear longer. No signs of sciatica or radiculopathy were present. The pain is likely musculoskeletal in origin, possibly related to the patient's cooking activities which involve repetitive bending and unilateral movements. Plan: - Order lumbar spine X-ray to rule out bony abnormalities - Prescribe muscle relaxant for nighttime use, with instructions to use up to 3 times daily if no drowsiness occurs - Prescribe diclofenac for pain relief, up to 3 times daily as needed - Recommend physical therapy if symptoms do not improve with medication - Follow up after X-ray results or sooner if symptoms worsen Swelling of both lower extremities 11/12/2024 Assessment & Plan (11/26/2024 9:41 AM EDT): Patient has a known history of diabetes mellitus. On examination, significant bilateral lower extremity edema was noted, with pitting edema and shiny skin changes. The patient reports not using compression socks due to discomfort. These findings suggest poor circulation and possible diabetic complications. Plan: - Scheduled follow-up appointment with Dr. Link on January 14 at 9:15 AM for diabetes management and edema evaluation - Recommend use of compression socks for edema management Neovascular glaucoma of right eye, indeterminate stage 08/02/2020 Overview (08/07/2024): Referred by Compa Dick MD from [facility] Tmax (08/02/20): >80, 14 CCT: need baseline Gonio (08/02/20): NS right eye; PTM, no NVA left eye OCT: need baseline HVF: need baseline Current regimen: Brimonidine 3/3, Cosopt 2/2, Travatan 1/1 Allergies to regimen: Acetazolamide Past procedures: none 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 Overview (11/06/2022): Referred by Compa Dick MD from [facility] Tmax (08/02/20): >80, 14 CCT: need baseline Gonio (08/02/20): NS right eye; PTM, no NVA left eye OCT: need baseline HVF: need baseline Current regimen: Brimonidine 3/3, Cosopt 2/2, Travatan 1/1 Allergies to regimen: Acetazolamide Past procedures: none Last Assessment & Plan: IOP today >70, 14mmHg Patient reports currently with no pain but he had pain couple of weeks ago Discussed options including environmental health inspector Discussed patient given NLP doesn't recommend incisional surgery but off erred environmental health inspector if Patient uncomfortable and pain Patient given not having pain wants to do drops at this time and to call us if he has significant pain to schedule environmental health inspector Continue regimen: Brimonidine TID both eyes Cosopt [...] (11/06/2022): Referred by Compa Dick MD from [facility] S/p Avastin right eye 05/31/2020 S/p Avastin left eye 06/14/2020 Last Assessment & Plan: Encouraged regular follow-up with PCP and retina specialist at [facility] Check with Dr. Dick for MRx when DME is controlled Moderate recurrent major depression (CMS/HCC) Alcohol abuse 04/07/2015 Benign essential hypertension 04/07/2015 Assessment & Plan (11/26/2024 9:42 AM EDT): Blood pressure measured at 140/86 mmHg, which is elevated for a patient with diabetes. Target blood pressure for diabetic patients is less than 130/80 mmHg. Plan: - Monitor blood pressure at follow-up visits - Reassess antihypertensive regimen at next appointment with Dr. Link Type 2 diabetes mellitus, uncontrolled 5 Hyperlipidemia 02/22/2012 Diabetes mellitus 10/18/2011 Encounters Date Type Department Care Team Description 04/20/2025 Telephone [facility] [address] [place] [address] Karon Link MD Chart Prep 04/05/2025 Refill [facility] [address] [place] [address] Karon Link MD Type 2 diabetes mellitus without complication, with long-term current use of insulin ([facility]) 03/16/2025 Refill [facility] [address] [place] [address] Karon Link MD 03/09/2025 Refill [facility] [address] [place] [address] Karon Link MD 02/25/2025 Refill [facility] [address] [place] [address] Karon Link MD Type 2 diabetes mellitus without complication, with long-term current use of insulin ([facility]/HCC) 02/19/2025 9:00 AM EDT Office Visit [facility] [address] [place] [address] Karon Link MD Persistent proteinuria (Primary Dx); Type 2 diabetes mellitus with both eyes affected by moderate nonproliferative retinopathy without macular edema, with long-term current use of insulin ([facility]); Alcohol use disorder, severe, dependence (CMS/[facility]); Mixed hyperlipidemia; 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 with type 2 diabetes mellitus, unspecified proliferative retinopathy type (CMS/HCC) 02/19/2025 Travel 02/18/2025 Telephone [facility] [address] [place] [address] Karon Link MD Chart Prep 02/12/2025 Refill [facility] [address] [place] [address] Karon Link MD Type 2 diabetes mellitus without complication, with long-term current use of insulin ([facility]/HCC) 02/04/2025 Refill [facility] [address] [place] [address] Karon Link MD Type 2 diabetes mellitus without complication, with long-term current use of insulin ([facility]) from Last 3 Months Immunizations Immunization Administration Dates Next Due Hep B, adult [...] Sign Reading Time Taken Comments Blood Pressure 160/90 02/19/2025 9:03 AM EDT Pulse 76 02/19/2025 9:03 AM EDT Temperature 36.6 C (97.9 F) 02/19/2025 9:03 AM EDT Respiratory Rate 14 02/19/2025 9:03 AM EDT Oxygen Saturation 98% 02/19/2025 9:03 AM EDT Inhaled Oxygen Concentration - - Weight 95.7 kg (211 lb) 02/19/2025 9:03 AM EDT Height 162.6 cm (5' 4 ) 02/19/2025 9:03 AM EDT Body Mass Index 36.22 02/19/2025 9:03 AM EDT Plan of Treatment Health Maintenance Due Date Last Done Comments CT Colonography 1976 Colonoscopy 1976 Colorectal Cancer Screening 1976 FIT DNA/Cologuard 1976 FIT 1976 FOBT 1976 Sigmoidoscopy 1976 Family Planning (PISQ) 1991 Pneumococcal Vaccine: Pediatrics (0 to 5 Years) and At-Risk Patients (6 to 49) Years (1 of 2 - PCV) 1995 Hepatitis B Vaccines (2 of 3 - 19+ 3-dose series) 03/05/2019 02/05/2019 Eye Exam 10/12/2023 10/11/2022, 04/0 01/2021, 06/08/2020, Additional history exists Diabetes: Foot Exam 05/01/2024 05/01/2023, 05/01/2023, 05/01/2023, Additional history exists COVID-19 Vaccine ( season) 2025 09/14/2020, 08/17/2020 Influenza Vaccine (#1) 2025 , 05/01/2023, 04/06/2022, Additional history exists Depression Screening 05/08/2025 05/08/2024, 05/08/20 24 Disability Screening 05/08/2025 05/08/2024 SDOH Screening 05/08/2025 05/08/2024 Diabetes: Hemoglobin A1C 05/21/2025 025, 08/07/2024, 05/08/2024, Additional history exists Diabetes: Urine Protein Screening 08/07/2025 08/07/2024, 08/04/2021, 05/07/2020, Additional history exists Lipid Panel 08/07/2025 08/07/2024, 08/02, 05/07/2020, Additional history exists Tobacco Screening 11/12/2025 11/12/2024 Alcohol/Substance Use Screening 02/19/2026 02/19/2025 Zoster Vaccines (1 of 2) 2026 DTaP/Tdap/Td Vaccines (2 - Td or Tdap) 03/12/2029 03/12/2019, 07/26/2014 RSV Patients and Patients Aged 60 years or older (1 - 1-dose 75+ series) 2051 HIV Screening Completed 11/13/2022, 07/07/2020 Hepatitis C Screening Completed 11/13/2022 HIB Vaccines Aged Out No longer eligi ble based on patient's age to complete this topic HPV Vaccines Aged Out No longer eligi ble based on patient's age to complete this topic Hepatitis A Vaccines Aged Out No long er eligible based on patient's age to complete this topic IPV Vaccines Aged Out No longer eligi ble based on patient's age to complete this topic Meningococcal B Vaccine Aged Out No l onger eligible based on patient's age to complete this topic Meningococcal Vaccine Aged Out No claire benito eligible based on patient's age to complete this topic RSV under 20 months Aged Out No longe r eligible based on patient's age to complete this topic Rotavirus Vaccines Aged Out No longer eligible based on patient's age to complete this topic Goals Goal Patient Goal Type Associated Problems Recent Progress Patient-Stated? Author Help patients manage their type 2 diabetes Care Plan Help patients manage their type 2 diabetes No Tori Oliveros MA Weekly blood pressure task Care Plan Weekly blood pressure task No Tori Oliveros MA Help patients manage their type 2 diabetes Care Plan Help patients manage their type 2 diabetes No Tori Oliveros MA Patient has diabetic eye disease Care Plan Patient has diabetic eye disease No Tori Oliveors MA Help patients manage their type 2 diabetes Care Plan Help patients manage their type 2 diabetes No Tori Oliveros MA Patient has chronic kidney disease Care Plan Patient has chronic kidney disease No Tori Oliveros MA Weekly blood pressure task Care Plan Weekly blood pressure task No Tori Oliveros MA Weekly blood pressure task Care Plan Weekly blood pressure task No Tori Oliveros MA Patient has diabetic eye disease Care Plan Patient has diabetic eye disease No Tori Oliveros MA Patient has diabetic eye disease Care Plan Patient has diabetic eye disease No Tori Oliveros MA Patient has chronic kidney disease Care Plan Patient has chronic kidney disease Tori Gann MA Patient has chronic kidney disease Care Plan Patient has chronic kidney disease No Tori Oliveros MA Procedures Procedure Name Priority Date/Time Associated Diagnosis Comments POCT GLUCOSE Routine 02/19/2025 9:05 AM EDT Type 2 diabetes mellitus with both eyes affected by moderate nonproliferative retinopathy without macular edema, with long-term current use of insulin (CMS/HCC) POCT GLYCATED HEMOGLOBIN, TOTAL Routine 02/19/2025 9:05 AM EDT Type 2 diabetes mellitus with both eyes affected by moderate nonproliferative retinopathy without macular edema, with long-term current use of insulin (CMS/HCC) ALBUMIN, RANDOM URINE W/CREATININE Routine 08/07/2024 11:00 AM EST Type 2 diabetes mellitus with both eyes affected by moderate nonproliferative retinopathy without macular edema, with long-term current use of insulin (CMS/HCC) ETOH abuse LIPID PANEL, STANDARD Routine 08/07/2024 10:54 AM EST Type 2 diabetes mellitus with both eyes affected by moderate nonproliferative retinopathy without macular edema, with long-term current use of insulin (CMS/HCC) ETOH abuse HEPATITIS C AB W/REFL TO HCV RNA, QN, PCR Routine 11/13/2022 11:02 AM EDT Alcohol use disorder, severe, dependence (CMS/HCC) HIV 1/2 ANTIGEN/ANTIBODY, FOURTH GENERATION W/RFL Routine 11/13/2022 11:02 AM EDT Alcohol use disorder, severe, dependence (CMS/HCC) from Last 3 Months or Most Recently Relevant to Health Maintenance Results * (ABNORMAL) POCT A1c (02/19/2025 9:05 AM EDT) Hemoglobin A1C 9.3(A) 4.0 - 5.7 % QC Media Lot # Comment:[id number] Lot# Expiration Date Comment:09/08/2026 Blood 02/19/2025 9:05 AM EDT us Karon Link MD POINT OF CARE TEST ENTER/EDIT ORDERABLES Final Result * POCT glucose manually resulted (02/19/2025 9:05 AM EDT) Glucose Blood, POC 123 60 - 200 mg/dL QC Media Lot # Comment:[id number] Lot# Expiration Date Comment:05/23/2025 Blood Capillary blood specimen / Unknown 02/19/2025 9:05 AM EDT us Karon Lnik MD POINT OF CARE TEST ENTER/EDIT ORDERABLES Final Result * (ABNORMAL) Albumin, Random Urine W/Creatinine (08/07/2024 11:00 AM EST) Creatinine, Urine 50.57 mg/dL [facility] Microalbumin Urine 1,860.0 mg/L [facility] Microalbum Creatinine Ratio Ur 3,678.0(H ) <30 ug/mg cr [facility] Comment:Albumin/Creatinine R atio Reference Ranges: Normal: < 30 ug/mg creatinine Microalbuminuria: 30 - 300 ug/mg creatinineClinical Albuminuria: > 300 ug/mg creatinine Urine (Urine, Random) 08/07/2024 11:00 AM EST 08/07/2024 2:12 PM EST us Karon Link MD LAB URINE ORDERABLES Final Re sult [facility] [address] [place] [phone] * (ABNORMAL) Lipid Panel, Standard (08/07/2024 10:54 AM EST) Triglycerides 104 <150 mg/dL [facility] Comment:Desirable Triglyceri de: less than 150 mg/dLBorderline High Triglyceride 150-199 mg/dLHigh Triglyceride: 200-499 mg/dLVery High Triglyceride: greater than or equal to 5OO mg/dL Cholesterol 219(H) <200 mg/dL [facility] Comment:Desirable Cholestero l: less than 200 mg/dLBorderline High Cholesterol: 200-239 mg/dLHigh Cholesterol: greater than 239 mg/dL LDL Cholesterol Calculated 124(H) <100 mg/dL [facility] Comment:Desirable LDL: less than 100 mg/dLNear Optimal/Above Optimal LDL: 110- 129 mg/dLBorderline High LDL: 130-159 mg/dLHigh LDL: 160-189 mg/dLVery High LDL: greater than or equal to 190 mg/dL HDL Cholesterol 75 >40 mg/dL [facility] Comment:Desirable HDL: great er than 40 mg/dL Note: This HDL assay may give artificially low results in patients with liver disease. Blood Venous blood specimen / Unknown 08/07/2024 10:54 AM EST 08/07/2024 2:12 PM EST us Karon Link MD LAB BLOOD ORDERABLES Final Re sult [facility] [address] [place] [phone] [phone] * Hepatitis C Antibody with Reflex to HCV, RNA, Quantitative, Real-Time PCR (11/13/2022 11:02 AM EDT) Hepatitis C Antibody NON-REACT GEORGE NON-REACT GEORGE [employer] Index <0.02 <1.00 [employer] Comment: HCV antibody was non-reactive. There is no laboratory evidence of HCV infection. In most cases, no further action is required. However, if recent HCV exposure is suspected, a test for HCV RNA (test code 71999) is suggested. For additional information please refer to http://education.Kwaab/faq/PYG36j3 (This link is being provided for informational/ educational purposes only.) Blood Venous blood specimen / Unknown 11/13/2022 11:02 AM EDT 11/13/2022 11:03 AM EDT Nirmal Pugh MD LAB BLOOD ORDERABLES Final Resul t Performing Organization Address [facility] Co de Phone Number [address], [facility] [place] [address] [employer] [place] [employer] [address] [place] [phone] * HIV-1/2 Antigen and Antibodies, Fourth Generation, with Reflexes (11/13/2022 11:02 AM EDT) [facility] HIV Antigen/Antibody, 4th Generation NON-REAC TIVE NON-REAC TIVE [facility] [place] [facility] Comment: HIV-1 antigen and HIV-1/HIV-2 antibodies were not detected. There is no laboratory evidence of HIV infection. PLEASE NOTE: This information has been disclosed to you from records whose confidentiality may be protected by state law. If your state requires such protection, then the state law prohibits you from making any further disclosure of the information without the specific written consent of the person to whom it pertains, or as otherwise permitted by law. A general authorization for the release of medical or other information is NOT sufficient for this purpose. For additional information please refer to http://education.Evocalize.Anafore/faq/RSO742 (This link is being provided for informational/ educational purposes only.) The performance of this assay has not been clinically validated in patients less than 2 years old. Blood Venous blood specimen / Unknown 11/13/2022 11:02 AM EDT 11/13/2022 11:03 AM EDT us Nirmal Pugh MD LAB BLOOD ORDERABLES Final Resul t [address], [facility] [place] [address] [employer] [place] [employer] [address] [place] [phone] from Last 3 Months or Most Recently Relevant to Health Maintenance Additional Health Concerns Active Problems Noted Date Diagnosed Date Help patients manage their type 2 diabetes 04/20 Weekly blood pressure task 04/20/2025 Help patients manage their type 2 diabetes 04/20 Patient has diabetic eye disease 04/20/2025 Help patients manage their type 2 diabetes 04/20 Patient has chronic kidney disease 04/20/2025 Weekly blood pressure task 04/20/2025 Weekly blood pressure task 04/20/2025 Patient has diabetic eye disease 04/20/2025 Patient has diabetic eye disease 04/20/2025 Patient has chronic kidney disease 04/20/2025 Patient has chronic kidney disease 04/20/[address] [place] [address] [place] [address] HSN FULL Care Teams Bookmobile Driver Relationship Specialty Start Date End Date Karon Link MD [address] [place] [phone] PCP - General Family Medicine 06/04/18
--- OUTSIDE RECORDS SUMMARY | 2025-05-06 09:29 | XMS_ITS | Encounter Summary ---
Author Organization [employer] Address [address] [place] [address] Care Team Providers Care Intervention Teacher Name Role Phone Karon Link MD Primary Care Provider [phone] Encounter Details Date Type Department Care Team ([facility] st Contact Info) Description 06/12/2023 Telephone [facility] [address] [place], [place] [phone] Araceli Vanessa RN [address] [place] [address] Social History Tobacco Use Types Packs/Day Years Used Date Smoking Tobacco: Never Passive Smoke Exposure: Never Smokeless Tobacco: Never Alcohol Use Standard Drinks/Week Comments Never 0 (1 standard drink = 0.6 oz pur e alcohol) Depression Answer Date Recorded Patient Health Questionnaire-9 Score 6 07/05/2022 Housing Stability Answer Date Recorded What is your housing situation today? I have caragerardo ley 04/09/[address] you [...] 06/12/2023 3:24 PM EST Received all from [facility] Chemistry lab regarding labs drawn today during [...] documented as of this encounter Care Teams Intervention Teacher Relationship Specialty Start Date End Date Karon Link MD [address] [place] [address] PCP - General Family Medicine 06/04/18 documented as of this encounter
--- OUTSIDE RECORDS SUMMARY | 2025-05-06 09:29 | XMS_ITS | Encounter Summary ---
Author Organization [facility] Address [address] [facility] [address] [place] [address] Phone Care Team Providers Care Quality Systems Manager Name Role Phone Karon Link MD Primary Care Provider [phone] Encounter Details Date Type Department Care Team (Late st Contact Info) Description 08/03/2020 Ophth Exam [facility] Emergency Department [address] [place] [address] Gwen Dick MD [address] [place] [address] [email or web address] Social History Tobacco Use Types Packs/Day Years Used Date Smoking Tobacco: Never Smokeless Tobacco: Never Alcohol Use Standard Drinks/Week Comments Yes 0 (1 standard drink = 0.6 oz pur e alcohol) Sex and Gender Information Value Date Recorded Sex Assigned at Not on file Legal Sex Male 10:30 PM EDT Gender Identity Not on file Sexual Orientation Not on file documented as of this encounter Functional Status * Calculated C-SSRS Risk Score (Lifetime/Recent) Answer Date of Assessment Author No Risk Indicated 08/03/2020 5:44 PM Sumi Marrufo RN * [place] Suicide Severity Rating Scale (Screener/Recent Self-Report) Question Answer Date of Assessment Author 1. Wish to be (Past 1 Month) No 021 5:44 PM Sumi Richardson RN 2. Non-Specific Active Suici galina Thoughts (Past 1 Month) No 08/03/2020 5:44 PM Jose Carlos Richardson RN 6. Suicidal Behavior (Lifetime) No 5:44 PM Sumi Richardson RN documented as of this encounter Plan of Treatment Not on file documented as of this encounter Visit Diagnoses Not on filedocumented in this encounter Care Teams Quality Systems Manager Relationship Specialty Start Date End Date Karon Link MD [address] [place] [id number] PCP - General 06/07/17 documented as of this encounter Additional Source Comments The information contained in this document represents components of the legal health record. It is not the complete legal health record.[facility]
--- OUTSIDE RECORDS SUMMARY | 2025-05-06 09:29 | XMS_ITS | Encounter Summary ---
Author Organization [employer] Address [address] [place] [address] [address] [place] [address] Care Team Providers Care Mechanical Maintenance Technician Name Role Phone Karon Link MD Primary Care Provider [phone] Encounter Details Date Type Department Care Team ([facility] st Contact Info) Description 12/18/2022 Orders Only [facility] [address] [place] [address] Larisa Morgan LPN Social History Tobacco Use [...] documented as of this encounter Care Teams Mechanical Maintenance Technician Relationship Specialty Start Date End Date Karon Link MD [address] [place] [address] PCP - General Family Medicine 06/04/18 documented as of this encounter
--- OUTSIDE RECORDS SUMMARY | 2025-05-06 09:29 | XMS_ITS | Clinical Summary ---
Author Organization [facility] Address [address] [place], [place] [id number] Phone Care Team Providers Care Documentation Engineer Name Role Phone Karon Link MD Primary Care Provider [phone] Allergies No known active allergies Medications lisinopril (PRINIVIL,ZEST RIL) 30 MG tablet 1 tablet Orally Once a day Active FLUoxetine (PROZAC) 20 MG capsule 1 capsule in the morning Orally Once a day Active aspirin (ASPIR-81) 81 MG EC tablet Take 81 mg by mouth daily. Active metFORMIN (GLUCOPHAGE) 1000 MG tablet 1 tablet with meals Orally Twice a day Active blood pressure test kit-large Kit Check blood pressure on arm as directed 0 Active atropine (ISOPTO ATROPINE) 1 % ophthalmic solution Apply 1 drop to eye. 1 Active brimonidine (ALPHAGAN P) 0.1 % Drop Apply 1 drop to eye. 0 Active insulin aspart U-100 (NOVOLOG FLEXPEN U-100 INSULIN) 100 unit/mL (3 mL) injection pen INJECT 8 TO 16 UNITS SUBCUTANEOUSLY BEFORE BREAKFAST, 12 TO 18 UNITS BEFORE LUNCH, AND 16 TO 20 UNITS BEFORE SUPPER 0 Active insulin glargine (LANTUS, BASAGLAR) 100 unit/mL (3 mL) InPn injection pen Inject 32 Units under the skin. 0 Active travoprost (TRAVATAN Z) 0.004 % Drop Place 1 drop into each eye daily. Active Family History Medical History Relation Comments Diabetes mellitus Mother 2 Relation Status Comments Mother 1 Mother 2 Social History Tobacco Use Types Packs/Day Years Used Date Smoking Tobacco: Never Smokeless Tobacco: Never Alcohol Use Standard Drinks/Week Comments Yes 0 (1 standard drink = 0.6 oz pur e alcohol) Education Answer Date Recorded Are you interested in more education? Not on isabella e 09/29/2022 Are you concerned about learning? Not on file 09/29/2022 No 09/29/2022 No 09/29/2022 Digital Access Answer Date Recorded No 10/30/2022 No 10/30/2022 Reliable internet access at home? Not on file 10/30/2022 Device with a working camera? Not on file Sex and Gender Information Value Date Recorded Sex Assigned at Not on file Legal Sex Male 10:30 PM EDT Gender Identity Not on file Sexual Orientation Not on file Last Filed Vital Signs Vital Sign Reading Time Taken Comments Blood Pressure 132/88 08/03/2020 7:14 PM EST Pulse 81 08/03/2020 7:14 PM EST Temperature 36.6 C (97.9 F) 08/03/2020 5:48 PM EST Respiratory Rate 15 08/03/2020 7:14 PM EST Oxygen Saturation 100% 08/03/2020 7:14 PM EST Inhaled Oxygen Concentration - - Weight 92.5 kg (204 lb) 08/03/2020 5:48 PM EST Height 165.1 cm (5' 5 ) 08/03/2020 5:48 PM EST Body Mass Index 33.95 08/03/2020 5:48 PM EST Plan of Treatment Not on file Medical Devices Not on file Insurance [employer] LIMITED [facility] [employer] Care Teams Documentation Engineer Relationship Specialty Start Date End Date Karon Link MD [address] [place] [id number] PCP - General 06/07/17 Additional Source Comments The information contained in this document represents components of the legal health record. It is not the complete legal health record.[facility]
--- OUTSIDE RECORDS SUMMARY | 2025-05-06 09:29 | XMS_ITS | Encounter Summary ---
Author Organization [facility] Address [address] [place] [address] Care Team Providers Care Strip Picker Name Role Phone Karon Link Primary Care Provider [phone] Reason for Referral * Consultation (Routine) - Authorized Specialty Diagnoses / Procedures Referred By Rodo sweet Referred To Contact Nephrology Diagnoses Type 2 diabetes mellitus with both eyes affected by moderate nonproliferative retinopathy without macular edema, with long-term current use of insulin Persistent proteinuria Karon Link [address] [place] [address] Phone: tel: fax: [facility] [address] [place] [id number] Phone: tel: fax: Referral ID Status Reason Start Date Expiration Date Visits Requested Visits Authorized [id number] Authorized Specialty Services Required 04/25/2026 6 6 Encounter Details Date Type Department Care Team (Latest Contact Info) Description 03/25/2025 Transcribe Orders [facility] [address] [place] [address] Karon Link [address] [place], [place] [id number] Type 2 diabetes mellitus with both eyes affected by moderate nonproliferative retinopathy without macular edema, with long-term current use of insulin (Primary Dx); Persistent proteinuria Social History Tobacco Use Types Packs/Day Years [...] file Not on file Not on file documented as of this encounter Plan of Treatment Upcoming Encounters Date Type Department Care Team (Late st Contact Info) Description 07/08/2025 10:00 AM EST Office Visit [facility] [address] [place] [phone] Marketing Research Analyst: Lisa Brown MD [address] [place] [phone] Scheduled Referrals Name Type Priority Associated Diagnoses Orde r Schedule Ambulatory referral to Nephrology Outpatient Referral Routine Type 2 diabetes mellitus with both eyes affected by moderate nonproliferative retinopathy without macular edema, with long-term current use of insulin Persistent proteinuria Expected: 03/25/2025, Expires: 04/25/2026 documented as of this encounter Visit Diagnoses Diagnosis Type 2 diabetes mellitus with both eyes affected by moderate nonproliferative retinopathy without macular edema, with long-term current use of insulin- Primary Persistent proteinuria documented in this encounter Care Teams Strip Picker Relationship Specialty Start Date End Date Karon Link [address] [place] [address] PCP - General 12/21/16 documented as of this encounter
== END 2025-05-06 08:59 | disposition home or self-care (01) ==
LOC: HO.US 08:58
PROVIDERS: PCP Pediatrics; Visit Provider Pediatrics
DX: E11.3393 Type 2 diabetes mellitus with moderate nonproliferative diabetic retinopathy without macular edema, bilateral (principal); R80.1 Persistent proteinuria, unspecified; F10.20 Alcohol dependence, uncomplicated; Z79.4 Long term (current) use of insulin
CPT/HCPCS: 76700

== ENCOUNTER → 2025-05-06 09:02 | Outpatient (BNV) | payer MEDICAID, SELFPAY | PROVIDERS: PCP Pediatrics; Visit Provider Radiology Diagnostic Radiology | DX: F10.10 Alcohol abuse, uncomplicated (principal) | CPT/HCPCS: 76700 ==